=== PATIENT | female | born 1930 | race Hispanic/Latino ===

== ENCOUNTER 2016-11-04 04:54 | Observation (INO) | payer MEDICARE, BC ==
[2016-11-04 05:19] VITALS: BMI 21.2
--- NOTE | 2016-11-04 05:36 | ED PDOC ---
Arrival/HPI - General Time Seen by Provider: 11/04/16 05:13 Historian: Patient - History of Present Illness Narrative History of Present Illness (Text): 11/04/16 05:35 Audrey Crooks is an 86 year old female, whose past medical history includes IDDM, chronic kidney disease, hypertension, hyperlipidemia, PAD, and vertigo, who presents to the Emergency department complaining of left-sided chest pain radiating down to left upper arm. Patient states she woke up with pain 2 hours prior to arrival. Patient states pain began to gradually worsen and but resolved on when she arrived to the Emergency department. Patient denies any fever, chills, chest pain, shortness of breath, nausea, vomiting, diarrhea, urinary symptoms, back pain, neck pain, headache, dizziness, or any other complaints. PMD: Dr. Montana Glass Melt Operator: Dr. Townsend Time/Duration: 1-3 hours Symptom Onset: Gradual Activities at Onset: Rest, Light Context: Home Past Medical History - Provider Review Nursing Documentation Reviewed: Yes - Infectious Disease Hx of Infectious Diseases: None - Tetanus Immunization Tetanus Immunization: Unknown - Cardiac Hx Cardiac Disorders: Yes Hx Hypertension: Yes - Pulmonary Hx Respiratory Disorders: Yes Hx Pneumonia: Yes - Neurological Hx Neurological Disorder: Yes Hx Dizziness: Yes (VERTIGO) - HEENT Hx HEENT Disorder: Yes (WEARS RX GLASSES FOR READING) Hx Cataracts: Yes (HAD SURGERY BILATERAL EYES) Hx Deafness: Yes - Renal Hx Renal Disorder: Yes - Endocrine/Metabolic Hx Endocrine Disorders: Yes Hx Diabetes Mellitus Type 1: Yes - Hematological/Oncological Hx Blood Disorders: No - Integumentary Hx Dermatological Disorder: No - Musculoskeletal/Rheumatological Hx Musculoskeletal Disorders: Yes Hx Falls: Yes Hx Fractures: Yes (ANKLE FX) - Gastrointestinal Hx Gastrointestinal Disorders: Yes (COLON SURGERY,APPENDECTOMY,POLYPS, CONSTIPATION) Hx Gastroesophageal Reflux: No (pt denies) Other/Comment: CONSTIPATION, pt stated "I was told by dr Lou 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" Pt denies colon sx or colon cancer, gstritis - Genitourinary/Gynecological Hx Genitourinary Disorders: Yes (OVERACTIVE BLADDER) Other/Comment: HYSTERECTOMY - Psychiatric Hx Depression: No Hx Emotional Abuse: No Hx Physical Abuse: No Hx Substance Use: No - Surgical History Hx Appendectomy: Yes Hx Hysterectomy: Yes Other/Comment: POLYPS REMOVED,BILATERAL CATARACT SURGERY,COLON SURGERY - Anesthesia Hx Anesthesia: Yes Hx Anesthesia Reactions: No Hx Malignant Hyperthermia: No - Suicidal Assessment Feels Threatened In Home Enviroment: No Family/Social History - Physician Review Nursing Documentation Reviewed: Yes Family/Social History: No Known Family HX Smoking Status: Never Smoked Hx Alcohol Use: No Hx Substance Use: No Hx Substance Use Treatment: No Allergies/Home Meds Allergies/Adverse Reactions: Allergies No Known Allergies Allergy (Verified 09/26/15 13:09) Home Medications: Home Meds Medication Instructions Recorded Confirmed Lisinopril 20 mg PO DAILY 11/07/12 11/04/16 Aspirin [Lo-Dose Aspirin EC] 81 mg PO DAILY 07/13/16 11/04/16 Cilostazol [Pletal] 100 mg PO BID 07/13/16 11/04/16 Insulin Human Isophane (NPH) 15 unit SC AMHS 07/13/16 11/04/16 [Novolin N] Insulin Human Isophane (NPH) 20 unit SC HS 07/13/16 11/04/16 [Novolin N] Insulin Human Regular-LOW [HumuLIN 8 units SC ACHS 07/13/16 11/04/16 R LOW] Atenolol [Tenormin] 50 mg PO DAILY 11/04/16 11/04/16 Atenolol [Tenormin] 50 mg PO DAILY 11/04/16 11/04/16 Clopidogrel [Plavix] 75 mg PO DAILY 11/04/16 11/04/16 Rosuvastatin Calcium [Crestor] 20 mg PO DAILY 11/04/16 11/04/16 Review of Systems - Physician Review All systems were reviewed & negative as marked: Yes - Review of Systems Constitutional: Normal. absent: Fevers Eyes: Normal ENT: Normal Respiratory: Normal. absent: SOB, Cough Cardiovascular: Normal. absent: Chest Pain Gastrointestinal: Normal. absent: Abdominal Pain, Diarrhea, Nausea, Vomiting Genitourinary Female: Normal. absent: Dysuria, Frequency, Hematuria, Urine Output Changes Musculoskeletal: Other (+left upper arm pain ). absent: Back Pain, Neck Pain Skin: Normal Neurological: Normal Endocrine: Normal Hemo/Lymphatic: Normal Psychiatric: Normal Physical Exam Vital Signs Reviewed: Yes Vital Signs Temp Pulse Resp BP Pulse Ox 11/04/16 14:21 67 18 139/66 96 11/04/16 13:00 105 H 18 158/85 H 96 11/04/16 12:00 98.7 F 64 18 118/76 11/04/16 10:55 78 16 131/60 96 11/04/16 07:13 98.7 F 64 16 118/76 97 11/04/16 05:00 97.7 F 75 16 161/88 H 99 Temperature: Afebrile Blood Pressure: Hypertensive Pulse: Regular Respiratory Rate: Normal Appearance: Positive for: Well-Appearing, Non-Toxic, Comfortable Pain Distress: None Mental Status: Positive for: Alert and Oriented X 3 - Systems Exam Head: Present: Atraumatic, Normocephalic Pupils: Present: PERRL Extroacular Muscles: Present: EOMI Conjunctiva: Present: Normal Mouth: Present: Moist Mucous Membranes Neck: Present: Normal Range of Motion Respiratory/Chest: Present: Clear to Auscultation, Good Air Exchange. No: Respiratory Distress, Accessory Muscle Use Cardiovascular: Present: Regular Rate and Rhythm, Normal S1, S2. No: Murmurs Abdomen: Present: Normal Bowel Sounds. No: Tenderness, Distention, Peritoneal Signs Back: Present: Normal Inspection Upper Extremity: Present: Normal Inspection. No: Cyanosis, Edema Lower Extremity: Present: Normal Inspection. No: Edema Neurological: Present: GCS=15, CN II-XII Intact, Speech Normal Skin: Present: Warm, Dry, Normal Color. No: Rashes Psychiatric: Present: Alert, Oriented x 3, Normal Insight, Normal Concentration Medical Decision Making ED Course and Treatment: 11/04/16 05:35 Impression: 86 year old female complaining of left upper arm pain for 2 hours [employer]. Differential Diagnosis include but are not limited to: ACS vs. chest pain Plan: -- EKG -- Chest X-ray -- Labs, cardiac enzymes -- Urinalysis -- Reassess and disposition Prior Visits: Notes and results from previous visits were reviewed. Progress Notes: Reviewed EKG, NSR at [address]-segment elevations or depressions, no T-wave inversions, normal intervals. 11/04/16 06:[address] Yang, who is aware and agrees with plan. Accepts pt in to his service. - Lab Interpretations Lab Results: 11/04/16 05:30 11/04/16 05:30 Lab Results 11/04/16 05:30: Sodium 136, Potassium 4.0, Chloride 100, Carbon Dioxide 27, Anion Gap 13, BUN 30 H, Creatinine 1.3, Est GFR ( Amer) 47, Est GFR (Non- Af Amer) 39, Random Glucose 208 H, Calcium 9.6, Magnesium 2.3 H, Total Bilirubin 1.1, AST 23, ALT 28, Alkaline Phosphatase 71, Lactate Dehydrogenase 373, Total Creatine Kinase 72, Troponin I < 0.01, Total Protein 6.7, Albumin 3.8 , Globulin 2.9, Albumin/Globulin Ratio 1.3 11/04/16 05:30: WBC 3.6 L D, RBC 3.98, Hgb 11.1 L, Hct 32.8 L, MCV 82.4, MCH 27.9, MCHC 33.8, RDW 13.1, Plt Count 205, MPV 10.0, Gran % 60.8, Lymph % (Auto) 25.5, Ralls % (Auto) 9.0 H, Eos % (Auto) 3.9, Baso % (Auto) 0.8, Gran # 2.17, Lymph # 0.9 L, Ralls # 0.3, Eos # 0.1, Baso # 0.03 - RAD Interpretation Radiology Orders: 11/04/16 06:25 CHEST PORTABLE [RAD] Stat - EKG Interpretation Interpreted by ED Physician: Yes Type: 12 lead EKG - Medication Orders Current Medication Orders: Acetaminophen (Tylenol 325mg Tab) 650 mg PO Q4H PRN PRN Reason: Pain, Mild (1-3) Aspirin (Ecotrin) 81 mg PO DAILY [facility] Last Admin: 11/04/16 12:21 Dose: 81 mg Atenolol (Tenormin) 50 mg PO DAILY [facility] Last Admin: 11/04/16 12:21 Dose: 50 mg Atorvastatin Calcium (Lipitor) 80 mg PO DIN [facility] Cilostazol (Pletal) 100 mg PO BID [facility] Last Admin: 11/04/16 12:28 Dose: 100 mg Clopidogrel Bisulfate (Plavix) 75 mg PO DAILY [facility] Last Admin: 11/04/16 12:21 Dose: 75 mg Insulin Human NPH (Humulin N) 15 units SC ACBD [facility] Last Admin: 11/04/16 12:22 Dose: 15 units Insulin Human Regular (Humulin R High) 0 units SC ACHS [facility] PRN Reason: Protocol Last Admin: 11/04/16 12:16 Dose: 10 units Lisinopril (Zestril) 20 mg PO DAILY [facility] Last Admin: 11/04/16 12:21 Dose: 20 mg Discontinued Medications Insulin Human Regular (Humulin R) Confirm Administered Dose 10 units .ROUTE .STK -MED ONE Stop: 11/04/16 12:21 Last Admin: 11/04/16 12:16 Dose: - Scribe Statement The provider has reviewed the documentation as recorded by the Malikibchevy Michelle All medical record entries made by the Malikibchevy were at my direction and personally dictated by me. I have reviewed the chart and agree that the record accurately reflects my personal performance of the history, physical exam, medical decision making, and the department course for this patient. I have also personally directed, reviewed, and agree with the discharge instructions and disposition. Disposition/Present on Arrival - Present on Arrival Any Indicators Present on Arrival: No History of DVT/PE: No History of Uncontrolled Diabetes: No Urinary Catheter: No History Surgical Site Infection Following: None - Disposition Have Diagnosis and Disposition been Completed?: Yes Diagnosis: Chest pain Disposition: HOSPITALIZED Disposition Time: 06:00 Condition: GOOD
[2016-11-04 05:46] LABS: ADD MANUAL DIFF? NO
[2016-11-04 05:59] LABS: ALB/GLOB RATIO 1.3 (1.1-1.8); ALKALINE PHOSPHATASE 71 U/L (38-133); ALT/SGPT 28 U/L (7-56); AST/SGOT 23 U/L (15-39); BILIRUBIN,TOTAL 1.1 mg/dL (0.2-1.3); BLOOD UREA NITROGEN 30 mg/dL (7-21); CALCIUM 9.6 mg/dL (8.4-10.5); CARBON DIOXIDE 27 mmol/L (21-33); CHLORIDE 100 mmol/L (98-107); GFR AFRICAN-AMERICAN 47; GLUCOSE,RANDOM 208 mg/dL (70-110); MAGNESIUM 2.3 mg/dL (1.7-2.2); SODIUM 136 mmol/L (132-148); TOTAL PROTEIN 6.7 g/dL (5.8-8.3)
[2016-11-04 06:11] LABS: TROPONIN I < 0.01 ng/mL
[2016-11-04 06:16] LABS: BASO # 0.03 K/mm3 (0.0-2.0); BASO % 0.8 % (0.0-3.0); EOS # 0.1 (0.0-0.7); EOS % 3.9 % (1.5-5.0); GRAN # 2.17 (1.4-6.5); GRAN % 60.8 % (50.0-68.0); HEMATOCRIT 32.8 % (36.0-48.0); LYMPH # 0.9 (1.2-3.4); LYMPH % 25.5 % (22.0-35.0); MEAN CELL VOLUME 82.4 fL (80.0-105.0); MEAN CORPUSCULAR HEMOGLOBIN 27.9 pg (25.0-35.0); MEAN CORPUSCULAR HGB CONC 33.8 g/dl (31.0-37.0); MONO # 0.3 (0.1-0.6); PLATELET COUNT 205 10^3/uL (120.0-450.0); RED CELL DISTRIBUTION WIDTH 13.1 % (11.5-14.5); WHITE BLOOD COUNT 3.6 10^3/ul (4.5-11.0)
[2016-11-04 08:02] LABS: URINE BILIRUBIN NEGATIVE (NEGATIVE); URINE BLOOD SMALL (NEGATIVE); URINE GLUCOSE (UA) 250 mg/dL (NEGATIVE); URINE KETONE NEGATIVE (NEGATIVE); URINE LEUKOCYTE ESTERASE NEGATIVE Leu/uL (NEGATIVE); URINE PROTEIN TRACE mg/dL (<30 mg/dL); URINE UROBILINOGEN 0.2 E.U./dL (<1 E.U./dL)
[2016-11-04 08:04] LABS: URINE COLOR LIGHT YELLOW (YELLOW)
[2016-11-04 08:13] LABS: URINE APPEARANCE SL CLOUDY (CLEAR); URINE BACTERIA MANY (NEG)
[2016-11-04 08:14] LABS: URINE EPITHELIAL CELLS 0 - 2 /hpf (0-5); URINE RBC NEGATIVE /hpf (0-2); URINE WBC 0 - 2 /hpf (0-6)
[2016-11-04] MEDS: Insulin Reg-HIGH-Coverage SC SCH ×3 (12:16→22:05)
[2016-11-04] MEDS ORDERED: Insulin Regular 1 UNITS/0.01 ML ML ONE (12:20)
[2016-11-04] MEDS: Insulin Human NPH 1 UNITS/0.01 ML SC SCH ×2 (12:22→17:11)
[2016-11-04] MEDS: Cilostazol 100 mg Tab UD PO SCH ×2 (12:28→17:18)
--- NOTE | 2016-11-04 15:08 | RAD ---
HISTORY: CP COMPARISON: Comparison chest 07/13/2016. FINDINGS: LUNGS: No active pulmonary disease. PLEURA: No significant pleural effusion identified, no pneumothorax apparent. CARDIOVASCULAR: Heart size normal. Calcification of the aortic knob OSSEOUS STRUCTURES: No significant abnormalities. VISUALIZED UPPER ABDOMEN: There appears to be metallic clips in the right upper quadrant of the abdomen consistent prior cholecystectomy. OTHER FINDINGS: None. IMPRESSION: No acute infiltrates.
--- NOTE | 2016-11-04 20:13 | HP ---
CHIEF COMPLAINT AND HISTORY OF PRESENT ILLNESS: This is an 86-year-old female who is coming into the hospital with complaints of chest pain. She said the chest pain was left-sided and it was going lindsey n to the left arm. It woke her up from sleep, so she was concerned. She has a history of diabetes, hypertension, dyslipidemia. The patient has seen Dr. Townsend in the past and had a stress test, but t his was many years ago. She has no complaints of any fevers, no diaphoresis, no nausea, no vomiting. She said the pain was about a 5/10, radiating to the left arm. Nothing was making the pain better. REVIEW OF SYSTEMS: All other review of symptoms are within normal limits except as mentioned. ALLERGIES: No known drug allergies. HOME MEDICATIONS: Lisinopril, aspirin, Pletal, NPH 15 units in the morning and the evening, atenolol , Plavix. SOCIAL HISTORY: She never smoked. She denies alcohol or drug abuse. PAST MEDICAL HISTORY: 1. 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 2. Dyslipidemia. 3. Hypertension. 4. Vertigo. PAST SURGICAL HISTORY: Cardiac cath. Bilateral eye surgery for cataracts. FAMILY HISTORY: Father at 80 of throat cancer. Mother at 66 of diabetes. PHYSICAL EXAMINATION: VITAL SIGNS: Temperature is 98.7, pulse of 67, blood pressure is 139/66, respirations 18, O2 saturat ion 96%. Height is 5 feet 2 inches, weight 116 pounds, BMI is 21.2. GENERAL: Patient lying in bed, flat, and in no apparent distress. HEAD AND NECK EXAM: Atraumatic, normocephalic. Conjunctivae are pink. Throat clear and mouth with moist mucosa. Oropharynx benign. EYES: Extraocular movements are intact. PERRLA. NECK: Supple. No JVD, thyromegaly, or adenopathy. No bruits. HEART: S1 and S2 regular rate and rhythm. No murmurs, rubs, or gallops. LUNGS: Clear to auscultation bilaterally. No wheezing rales or rhonchi appreciated. No retraction s on exam. ABDOMEN: Soft, nontender, nondistended. Bowel sounds are positive in all quadrants. No rebound. No hepatosplenomegaly. EXTREMITIES: No cyanosis, clubbing, or edema. NEURO: No facial asymmetry, tongue is midline, no uvula deviation. Power is 5/5 in upper extremity and 5/5 in lower extremity. Sensation is normal in upper extremity and lower extremity. PSYCH: Awake, alert, oriented x3. No anxiety or depression symptoms. Good insight. Normal affec t. : No CVA tenderness VASCULAR: 2+ pulses in carotid and pedal pulses. SKIN: No erythema or abnormal nodules noted. SPINE: Normal curvature. LYMPHADENOPATHY: No anterior cervical or posterior cervical adenopathy. No inguinal adenopathy. LABORATORY DATA: Have been reviewed. White count of 3.6, hemoglobin 11.1. The patient's first and second troponin is 0.01. Magnesium is 2.3. The patient's glucose is . Urine: Ketones are neg ative in urine, blood is small. Chest x-ray done shows no acute infiltrates. EKG shows sinus rhythm at 63. No ST-T changes. ASSESSMENT: 1. Chest pain. 2. Dyslipidemia. 3. Diabetes type 2. 4. Hypertension. PLAN: The patient is going to be admitted to the hospital. She is going to be on aspirin. She is o n atenolol. This will be continued for her chest pain. She is on Lipitor for dyslipidemia. She is also on Plavix. She is on lisinopril for her hypertension. I did speak to the patient's family at t he bedside. She is going to be on a diabetic diet. She will most likely need a stress test. I will get Dr. Townsend to evaluate further. Dileep Yang MD cc: [id number] TT: 11/04/2016 20:12:44 mn
[2016-11-04] MEDS ORDERED: Insulin Human NPH 1 UNITS/0.01 ML SC SCH (22:00)
--- NOTE | 2016-11-04 22:08 | CARD ---
APPROVED REPORT EKG Measurement Heart [id number] <Conclusion> Normal sinus rhythm Normal ECG
[2016-11-05 07:05] VITALS: RESP 20; O2SAT 94
[2016-11-05] MEDS: Insulin Human NPH 1 UNITS/0.01 ML SC SCH (07:47)
[2016-11-05] MEDS: Insulin Reg-HIGH-Coverage SC SCH ×2 (07:48→11:29)
--- NOTE | 2016-11-05 09:30 | DS ---
This is an 86-year-old female who had come into the hospital because of chest pain. She says she no longer has any chest pain. She had troponins done x 3, which were negative. She is going to be seen by Dr. Townsend this morning. She may need outpatient stress test done. I will defer this to Dr. Karen ford. She has no complaints of any headaches or dizziness. PHYSICAL EXAMINATION: VITAL SIGNS: Temperature is 97.9, pulse is 70, blood pressure 148/65, respirations 18, O2 saturation 99. GENERAL: The patient comfortable, in no acute distress. HEENT: Anicteric sclerae. Moist mucosa. NECK: No JVD or adenopathy. CARDIAC: S1/S2. No murmurs. No rubs. Regular. RESPIRATORY: Clear to auscultation bilaterally. No wheezes, rales, or rhonchi. Good air entry. ABDOMEN: Bowel sounds are positive, soft, nontender, and nondistended. EXTREMITIES: No edema. Has 1+ pulses. ASSESSMENT: 1. Chest pain. 2. Dyslipidemia. 3. Diabetes type 2. 4. Hypertension. PLAN: The patient is on aspirin and Plavix. This will be continued. She is on Lipitor for dyslipid emia. She is going to be on her atenolol. She is on lisinopril for hypertension. She is comfortabl e. CONDITION: Stable. ACTIVITIES: Increase as tolerated. Follow up with primary care doctor in 1 week. Dileep Yang MD cc: [id number] TT: 11/05/2016 09:29:43 cn
[2016-11-05] MEDS: Cilostazol 100 mg Tab UD PO SCH (10:21)
--- NOTE | 2016-11-05 10:46 | CON ---
DATE: 11/05/2016 INDICATIONS: Chest pain. This is an 86-year-old woman admitted yesterday through the Emergency Room with a left-sided chest pain radiating into the left arm. This morning, she does not recall having chest pain. Her memory seems to be significantly limited. The chart states that the chest pain radiated into the arm and lasted for several hours. This morning, she denies chest pain or other cardiac symptoms. She feels well. Her memory is poor. There is no orthopnea, PND, syncope, presyncope, dizziness, vertigo, edema, claudication, fever, chills, cough, sputum production, hemoptysis, abdominal pain, nausea, vomiting, diarrhea, constipation, or melena. PAST MEDICAL HISTORY: Notable for diabetes, hypertension, hyperlipidemia, chronic kidney disease, peripheral arterial disease and dementia. There is no history of rheumatic fever, myocardial infarction, congestive heart failure, stroke, TIA or gout. Apparently, there is a history of a stress test in the remote past, but nothing recently. MEDICATIONS: At the time of admission include Crestor, insulin, lisinopril, aspirin, Plavix, Pletal, Tenormin. ALLERGIES: There are no known medication allergies. She lives at home. She does not smoke cigarettes. She does not drink alcohol. FAMILY HISTORY: Noncontributory. REVIEW OF SYSTEMS: A 10-point is otherwise unremarkable except as noted above. PHYSICAL EXAMINATION: GENERAL: She is a well-developed, elderly woman, sitting on her bed, in telemetry, in no acute distress. VITAL SIGNS: Unremarkable. She is in sinus rhythm at 70 beats per minute. She is afebrile. Blood pressure 110/58, saturation 94%-99% on room air. HEENT: Reveals no neck vein distention, thyromegaly, or carotid bruits. Mucous membranes moist. Conjunctivae pink. NECK: Supple. LUNG MI: Clear. HEART: Revealed normal first and second heart sounds without murmur, gallop, rub or click. ABDOMEN: Soft. Bowel sounds are present. There is no mass, organomegaly, tenderness, rebound or guarding. There is no CVA tenderness. There is no palpable abdominal aortic aneurysm. EXTREMITIES: Revealed no cyanosis, clubbing, or edema. NEUROLOGIC: She was awake, alert and oriented. SKIN: Warm and dry. No rash or cellulitis. PSYCHIATRIC: Normal as to mood and affect, but poor memory. LABORATORY AND IMAGING: A chest x-ray reveals no acute infiltrates. EKG demonstrates regular sinus rhythm with leftward axis and nonspecific ST wave changes, no change from the prior EKG. CBC is notable for white count of 3600, hemoglobin 11,100, hematocrit 32,800, platelet count normal. Electrolytes, BUN , creatinine, blood sugar notable for an elevated blood sugar at 208. Magnesium is 2.3. LFTs are unremarkable. Three troponins are negative. CK is 72. IMPRESSION: The patient is an 86-year-old woman who apparently complained of chest pain radiating into the left arm, but has negative troponins and a benign EKG. This morning, she does not recall the symptoms, probably due to significant dementia. I agree with current plans. We will continue her usual medications. Early discharge is planned with outpatient followup with Dr. Montana. I would continue aspirin, Lipitor, Plavix and Tenormin. I would continue lisinopril. She is getting Pletal and insulin. Outpatient stress testing will be arranged pending discussion with Dr. Montana. Overall, a conservative course of cardiac care is anticipated given her apparently advanced dementia. Ayan Townsend MD cc: [id number] TT: 11/05/2016 10:45:53 Confirmation # [id number] Dictation # [id number] MTDD
[2016-11-05 11:58] VITALS: BP 134/62; PULSE 66; TEMP 97.5
== END 2016-11-05 16:36 | disposition home or self-care (01) ==
LOC: ED 04:54 → ERH 06:38 → 2RNO 14:59
PROVIDERS: ADMIT Internal Medicine Nephrology; ATTEND Internal Medicine Nephrology
DX: R07.89 Other chest pain (principal); I12.9 Hypertensive chronic kidney disease with stage 1 through stage 4 chronic kidney disease, or unspecified chronic kidney disease; N18.9 Chronic kidney disease, unspecified; E78.5 Hyperlipidemia, unspecified; E11.22 Type 2 diabetes mellitus with diabetic chronic kidney disease; I73.9 Peripheral vascular disease, unspecified; R42 Dizziness and giddiness; Z79.4 Long term (current) use of insulin; F03.90 Unspecified dementia, unspecified severity, without behavioral disturbance, psychotic disturbance, mood disturbance, and anxiety; Z79.02 Long term (current) use of antithrombotics/antiplatelets; Z79.82 Long term (current) use of aspirin; Z90.710 Acquired absence of both cervix and uterus; Z90.49 Acquired absence of other specified parts of digestive tract; Z98.42 Cataract extraction status, left eye; Z98.41 Cataract extraction status, right eye; Z80.8 Family history of malignant neoplasm of other organs or systems; Z83.3 Family history of diabetes mellitus
CPT/HCPCS: 71010; 80053; 81001; 82550; 82948; 83615; 83735; 84484; 85025; 93005; 96372; 99285; G0378

== ENCOUNTER 2017-06-02 10:21 | Observation (INO) | payer MEDICARE, BC ==
[2017-06-02 11:43] LABS: CALCIUM 10.4 mg/dL (8.4-10.5)
[2017-06-02 11:45] LABS: ALB/GLOB RATIO 1.3 (1.1-1.8); POTASSIUM 4.7 mmol/L (3.6-5.0); TOTAL PROTEIN 8.5 g/dL (5.8-8.3)
[2017-06-02] MEDS ORDERED: Sodium Chloride 0.9% 1,000 ML IV STA (11:48)
[2017-06-02 11:50] LABS: BASO # 0.02 K/mm3 (0.0-2.0); BASO % 0.2 % (0.0-3.0); EOS # 0.1 (0.0-0.7); EOS % 0.9 % (1.5-5.0); GRAN # 9.89 (1.4-6.5); HEMATOCRIT 40.9 % (36.0-48.0); LYMPH # 1.2 (1.2-3.4); MEAN CELL VOLUME 84.7 fl (80.0-105.0); MEAN CORPUSCULAR HEMOGLOBIN 28.6 pg (25.0-35.0); MEAN CORPUSCULAR HGB CONC 33.7 g/dl (31.0-37.0); MEAN PLATELET VOLUME 10.4 fl (7.0-11.0); MONO # 0.6 (0.1-0.6); MONO % 4.9 % (1.0-6.0); RED CELL DISTRIBUTION WIDTH 12.8 % (11.5-14.5); WHITE BLOOD COUNT 11.8 10^3/ul (4.5-11.0)
[2017-06-02 11:55] LABS: INR 1.18 (0.93-1.08); PARTIAL THROMBOPLASTIN TIME 24.3 Seconds (25.1-36.5)
--- NOTE | 2017-06-02 11:56 | ED PDOC ---
Arrival/HPI - General Chief Complaint: Abdominal Pain Time Seen by Provider: 06/02/17 10:26 Historian: Patient, Family - History of Present Illness Narrative History of Present Illness (Text): 06/02/17 12:03 An 87 year old female, whose past medical history includes chronic kidney disease, hypertension, hyperlipidemia, PAD, vertigo and IDDM, was brought in by EMS to the emergency department complaining of sore throat and runny nose for the past two days. HPI provided by patient's cousin. Cousin reports that since this morning patient has abdominal pain, back pain, lower extremity pain, which is chronic and similar to symptoms in the past. Also reports more frequent bowel movements, diaphoresis and lightheadedness. Cousin reports patient has an appointment with PMD for tomorrow. Patient denies any fever, shortness of breath or any other complaints at this time. PMD: Dr. Cheryl [place] Time/Duration: Other (2 days) Symptom Onset: Sudden Symptom Course: Unchanged Activities at Onset: Rest Context: Home Past Medical History - Provider Review Nursing Documentation Reviewed: Yes - Infectious Disease Hx of Infectious Diseases: None - Tetanus Immunization Tetanus Immunization: Unknown - Reproductive Menopause: Yes - Cardiac Hx Cardiac Disorders: Yes Hx Hypertension: Yes - Pulmonary Hx Respiratory Disorders: Yes Hx Pneumonia: Yes - Neurological Hx Neurological Disorder: Yes Hx Dizziness: Yes (VERTIGO) - HEENT Hx HEENT Disorder: Yes (WEARS RX GLASSES FOR READING) Hx Cataracts: Yes (HAD SURGERY BILATERAL EYES) Hx Deafness: Yes - Renal Hx Renal Disorder: Yes - Endocrine/Metabolic Hx Endocrine Disorders: Yes Hx Diabetes Mellitus Type 1: Yes - Hematological/Oncological Hx Blood Disorders: No - Integumentary Hx Dermatological Disorder: No - Musculoskeletal/Rheumatological Hx Musculoskeletal Disorders: Yes Hx Falls: Yes Hx Fractures: Yes (ANKLE FX) - Gastrointestinal Hx Gastrointestinal Disorders: Yes (COLON SURGERY,APPENDECTOMY,POLYPS, CONSTIPATION) Hx Gastroesophageal Reflux: No (pt denies) Other/Comment: CONSTIPATION, pt stated "I was told by dr Lou 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" Pt denies colon sx or colon cancer, gstritis - Genitourinary/Gynecological Hx Genitourinary Disorders: Yes (OVERACTIVE BLADDER) Other/Comment: HYSTERECTOMY - Psychiatric Hx Depression: No Hx Emotional Abuse: No Hx Physical Abuse: No Hx Substance Use: No - Surgical History Hx Appendectomy: Yes Hx Hysterectomy: Yes Other/Comment: POLYPS REMOVED,BILATERAL CATARACT SURGERY,COLON SURGERY - Anesthesia Hx Anesthesia: Yes Hx Anesthesia Reactions: No Hx Malignant Hyperthermia: No - Suicidal Assessment Feels Threatened In Home Enviroment: No Family/Social History - Physician Review Nursing Documentation Reviewed: Yes Family/Social History: No Known Family HX Smoking Status: Never Smoked Hx Alcohol Use: No Hx Substance Use: No Hx Substance Use Treatment: No Allergies/Home Meds Allergies/Adverse Reactions: Allergies No Known Allergies Allergy (Verified 06/02/17 10:27) Home Medications: Home Meds Medication Instructions Recorded Confirmed Lisinopril 20 mg PO DAILY 11/07/12 06/02/17 Aspirin [Lo-Dose Aspirin EC] 325 mg PO DAILY 07/13/16 06/02/17 Cilostazol [Pletal] 100 mg PO BID 07/13/16 06/02/17 Insulin Human Isophane (NPH) 15 unit SC QAM 07/13/16 06/02/17 [Novolin N] Insulin Human Isophane (NPH) 18 unit SC HS 07/13/16 06/02/17 [Novolin N] Insulin Human Regular-LOW [HumuLIN 8 units SC ACHS 07/13/16 06/02/17 R LOW] Atenolol [Tenormin] 50 mg PO DAILY 11/04/16 06/02/17 Clopidogrel [Plavix] 75 mg PO DAILY 11/04/16 06/02/17 Rosuvastatin Calcium [Crestor] 20 mg PO DAILY 11/04/16 06/02/17 Cholecalciferol (Vitamin D3) 1,000 unit PO DAILY 06/02/17 06/02/17 [Vitamin D3] Review of Systems - Physician Review All systems were reviewed & negative as marked: Yes - Review of Systems Constitutional: absent: Fevers Respiratory: absent: SOB Physical Exam - Physical Exam Narrative Physical Exam (Text): 06/02/17 12:01 Constitutional: No acute distress. Head: Normocephalic. Atraumatic. Eyes: PERRL. ENT: Moist mucous membranes. no erythema, no exudates. Neck: Supple. Cardiovascular: Regular rate. Chest: No tenderness. Respiratory: Clear to auscultation bilaterally. GI: Soft. Nontender. Nondistended. Back: No CVA tenderness. Musculoskeletal: No tenderness of extremities. right lower leg larger than left. Skin: No rash. Neurologic: Alert, no focal deficit. Vital Signs Reviewed: Yes Vital Signs Temp Pulse Resp BP Pulse Ox 06/02/17 14:00 99 F 80 19 123/51 L 100 06/02/17 12:22 98.1 F 70 19 149/55 L 100 06/02/17 10:22 98 F 66 18 155/56 H 100 Temperature: Afebrile Blood Pressure: Hypertensive Pulse: Regular Respiratory Rate: Normal Appearance: Positive for: Well-Appearing, Non-Toxic, Comfortable Pain Distress: None Mental Status: Positive for: Alert and Oriented X 3 Medical Decision Making ED Course and Treatment: 06/02/17 11:56 Impression: An 87 year old female with cold-like symptoms, abdominal pain, back pain, lower extremity pain, diaphoresis, more frequent bowel movements and lightheadedness. Differential Diagnosis included but are not limited to: URI vs. pneumonia vs. dehydration vs. gastroenteritis vs. DVT Plan: -- EKG -- chest xray -- Ultrasound lower extremity -- labs -- IV fluids, Zofran -- Reassess and disposition Prior Visits: Notes and results from previous visits were reviewed. Patient was last seen in the emergency department on 11/04/16 for evaluation of left sided chest pain radiating to left upper arm. Progress Notes: EKG: Ordered, reviewed, and independently interpreted the EKG. Rate : 60 BPM Rhythm : NSR Interpretation : No ST elevations 06/02/17 12:26 chest xray: Creator : Jordan Estrada MD FINDINGS: LUNGS: No active pulmonary disease. PLEURA: No significant pleural effusion identified, no pneumothorax apparent. CARDIOVASCULAR: Normal. OSSEOUS STRUCTURES: No significant abnormalities. VISUALIZED UPPER ABDOMEN: Normal. IMPRESSION: No active disease. 06/02/17 14:10 Right lower extremity venous US Creator : Tomi Collier MD FINDINGS: The visualized deep venous system of the right lower extremity is sonographically normal and compressible. Normal waveforms and augmentation are seen. There is no sonographic evidence for deep venous thrombosis in the visualized segments of the right lower extremity. IMPRESSION: 1. No sonographic evidence for deep venous thrombosis in the visualized segments of the right lower extremity. Dr. Mai covering for Dr. Montana accepts patient to her service for near syncope. - Lab Interpretations Lab Results: 06/02/17 10:50 06/02/17 10:50 Lab Results 06/02/17 10:51: POC Glucose (mg/dL) 159 H 06/02/17 10:50: Total Creatine Kinase 84, Troponin I < 0.01, Lipase 29 06/02/17 10:50: PT 13.0 H, INR 1.18 H, APTT 24.3 L 06/02/17 10:50: Sodium 136, Potassium 4.7, Chloride 99, Carbon Dioxide 27, Anion Gap 15, BUN 22 H, Creatinine 1.4 H, Est GFR ( Amer) 43, Est GFR ( Non-Af Amer) 36, Random Glucose 138 H, Calcium 10.4, Total Bilirubin 2.0 H, AST 47 H, ALT 31, Alkaline Phosphatase 93, Total Protein 8.5 H, Albumin 4.8, Globulin 3.7, Albumin/Globulin Ratio 1.3 06/02/17 10:50: WBC 11.8 H D, RBC 4.83, Hgb 13.8, Hct 40.9, MCV 84.7, MCH 28.6, MCHC 33.7, RDW 12.8, Plt Count 273, MPV 10.4, Gran % 84.0 H, Lymph % (Auto) 10.0 L, Wal[place] % (Auto) 4.9, Eos % (Auto) 0.9 L, Baso % (Auto) 0.2, Gran # 9.89 H , Lymph # 1.2, Waldo # 0.6, Eos # 0.1, Baso # 0.02 I have reviewed the lab results: Yes - RAD Interpretation Radiology Orders: 06/02/17 11:49 CHEST PORTABLE [RAD] Stat DUPLEX LOWER EXTRM VEIN RIGHT [US] Stat - EKG Interpretation Interpreted by ED Physician: Yes Type: 12 lead EKG - Medication Orders Current Medication Orders: Aspirin (Ecotrin) 325 mg PO DAILY [facility] Atenolol (Tenormin) 50 mg PO DAILY [facility] Atorvastatin Calcium (Lipitor) 20 mg PO DIN [facility] Cilostazol (Pletal) 100 mg PO BID [facility] Clopidogrel Bisulfate (Plavix) 75 mg PO DAILY [facility] Insulin Human NPH (Humulin N) 15 units SC DAILY [facility] Insulin Human NPH (Humulin N) 18 units SC HS [facility] Insulin Human Regular (Humulin R) 8 units SC ACHS [facility] Lisinopril (Zestril) 20 mg PO DAILY [facility] Discontinued Medications Sodium Chloride (Sodium Chloride 0.9%) 1,000 mls @ 999 mls/hr IV .Q1H1M STA Stop: 06/02/17 12:48 Last Admin: 06/02/17 11:56 Dose: 999 mls/hr eMAR Start Stop Document 06/02/17 11:56 [place] (Rec: 06/02/17 11:57 [place] [facility] [id number] Intravenous Solution Start Date 06/02/17 Start Time 11:56 Insulin Human Regular (Humulin R Low) 8 units SC ACHS [facility] PRN Reason: Protocol Ondansetron HCl (Zofran Inj) 4 mg IVP STAT STA Stop: 06/02/17 11:49 Last Admin: 06/02/17 11:55 Dose: 4 mg IVP Administration Document 06/02/17 11:55 JORDAN (Rec: 06/02/17 11:56 [place] [facility] [id number] Charges for Administration # of IVP Administrations 1 - Scribe Statement The provider has reviewed the documentation as recorded by the More Velez Provider Scribe Attestation: All medical record entries made by the Scribe were at my direction and personally dictated by me. I have reviewed the chart and agree that the record accurately reflects my personal performance of the history, physical exam, medical decision making, and the department course for this patient. I have also personally directed, reviewed, and agree with the discharge instructions and disposition. Disposition/Present on Arrival - Present on Arrival Any Indicators Present on Arrival: No History of DVT/PE: No History of Uncontrolled Diabetes: No Urinary Catheter: No History of Decub. Ulcer: No History Surgical Site Infection Following: None - Disposition Have Diagnosis and Disposition been Completed?: Yes Diagnosis: Near syncope Disposition: HOSPITALIZED Disposition Time: 14:45 Patient Plan: Observation, Telemetry Condition: FAIR
--- NOTE | 2017-06-02 12:23 | RAD ---
HISTORY: near syncope COMPARISON: 11/04/2016 FINDINGS: LUNGS: No active pulmonary disease. PLEURA: No significant pleural effusion identified, no pneumothorax apparent. CARDIOVASCULAR: Normal. OSSEOUS STRUCTURES: No significant abnormalities. VISUALIZED UPPER ABDOMEN: Normal. OTHER FINDINGS: None. IMPRESSION: No active disease.
[2017-06-02 12:25] LABS: LIPASE 29 U/L (23-300)
[2017-06-02 12:42] LABS: TROPONIN I < 0.01 ng/mL
--- NOTE | 2017-06-02 14:08 | US ---
PROCEDURE: Right lower extremity venous US HISTORY: Leg pain and swelling. Evaluate for DVT. PHYSICIAN(S): Tomi Marion M.D. TECHNIQUE: Duplex sonography and color-flow Doppler with graded compression were used to evaluate the deep venous system of the right lower extremity. FINDINGS: The visualized deep venous system of the right lower extremity is sonographically normal and compressible. Normal waveforms and augmentation are seen. There is no sonographic evidence for deep venous thrombosis in the visualized segments of the right lower extremity. IMPRESSION: 1. No sonographic evidence for deep venous thrombosis in the visualized segments of the right lower extremity.
[2017-06-02] MEDS ORDERED: Insulin Reg-LOW-Coverage SC SCH (16:30)
[2017-06-02] MEDS: Aspirin 325 mg EC Tablets PO SCH (17:14)
[2017-06-02] MEDS: Cilostazol 100 mg Tab UD PO SCH (17:20)
[2017-06-02 17:54] VITALS: BMI 19.2
[2017-06-02] MEDS ORDERED: Insulin Regular 1 UNITS/0.01 ML ML SC ONE (18:30)
[2017-06-02] MEDS ORDERED: Insulin Human NPH 1 UNITS/0.01 ML SC SCH (22:00)
[2017-06-02] MEDS ORDERED: Insulin Regular 1 UNITS/0.01 ML ML SC STA (23:07)
[2017-06-02] MEDS ORDERED: Insulin Human NPH 1 UNITS/0.01 ML SC STA (23:08)
[2017-06-02] MEDS: Insulin Regular 1 UNITS/0.01 ML ML SC SCH (23:13)
[2017-06-03 06:27] VITALS: TEMP 97.7
[2017-06-03 06:27] LABS: HEMATOCRIT 32.1 % (36.0-48.0); MEAN CELL VOLUME 83.8 fl (80.0-105.0); MEAN CORPUSCULAR HEMOGLOBIN 27.9 pg (25.0-35.0); MEAN CORPUSCULAR HGB CONC 33.3 g/dl (31.0-37.0); MEAN PLATELET VOLUME 9.8 fl (7.0-11.0); RED CELL DISTRIBUTION WIDTH 13.1 % (11.5-14.5); WHITE BLOOD COUNT 8.1 10^3/ul (4.5-11.0)
[2017-06-03 06:49] LABS: ALB/GLOB RATIO 1.3 (1.1-1.8); BILIRUBIN,TOTAL 1.3 mg/dL (0.2-1.3); POTASSIUM 4.3 mmol/L (3.6-5.0); TOTAL PROTEIN 5.7 g/dL (5.8-8.3)
[2017-06-03] MEDS: Insulin Regular 1 UNITS/0.01 ML ML SC SCH (08:13)
[2017-06-03] MEDS ORDERED: Insulin Regular 1 UNITS/0.01 ML ML SC STA (08:14)
[2017-06-03] MEDS ORDERED: Insulin Reg-MEDIUM-Coverage SC STA (08:14)
[2017-06-03] MEDS: Cilostazol 100 mg Tab UD PO SCH (09:35)
[2017-06-03] MEDS: Aspirin 325 mg EC Tablets PO SCH (09:35)
[2017-06-03 09:36] VITALS: BP 131/63; PULSE 61
--- NOTE | 2017-06-03 09:50 | CARD ---
APPROVED REPORT EKG Measurement Heart [id number] NH [id number] <Conclusion> Sinus bradycardia LAD Artifact present No change
--- NOTE | 2017-06-03 09:55 | HP ---
CHIEF COMPLAINT AND HISTORY OF PRESENT ILLNESS: This is an 87-year-old female who was coming into the hospital because of abdominal pain. She has a past medical history is hypertension, dyslipidemia, peripheral arterial disease, and diabetes type 2. She says that she was having complaints of sore throat and runny nose for the past few days. She has been having frequent bowel movements. The patient says she had become dizzy. She felt like she was going to pass out. The patient says she does feel better this morning. She has no complaints of any headaches or dizziness. No nausea. No vomiting. No weakness in the arms and at the legs. Her diarrhea has improved. She has no abdominal pain. PAST MEDICAL HISTORY: 1. Diabetes type 2 times more than 20 years. 2. Dyslipidemia. 3. Hypertension. 4. Vertigo. PAST SURGICAL HISTORY: Cardiac catheterization and bilateral eye surgery for cataract. ALLERGIES: NO KNOWN ALLERGIES. HOME MEDICATIONS: Lisinopril, aspirin, Pletal, NPH 15 units in the morning and NPH 18 units in the evening, atenolol, Plavix, Crestor, and vitamin D. FAMILY HISTORY: Father at 80 of throat cancer. Mother at 66 of diabetes. REVIEW OF SYSTEMS: All other review of symptoms are within normal limits except what was mentioned. PHYSICAL EXAMINATION: VITAL SIGNS: Temperature 97.7, pulse 63, blood pressure 100/40, respirations 19, and O2 saturation 96%. GENERAL: The patient lying in bed, uncomfortable, and in no acute distress. HEENT: Atraumatic and normocephalic. Anicteric sclerae. Moist mucosa. [place] conjunctivae. No oral lesions. NECK: No JVD, anterior and posterior adenopathy, thyromegaly, or bruits. CARDIOVASCULAR: S1 and S2 regular. No murmur, rubs, or gallop. LUNGS: Clear to auscultation bilaterally. No wheezes, rales, or rhonchi. ABDOMEN: Bowel sounds are positive. Soft, nontender and nondistended. No hepatosplenomegaly. No rebound and no guarding. EXTREMITIES: No cyanosis, clubbing, or edema. NEUROLOGIC: No facial asymmetry. Tongue is midline. No vulva deviation. Power is 5/5 upper extremity and lower extremity. Sensation intact in upper extremity and lower extremity. PSYCHIATRIC: She is awake, alert and oriented x3. No anxiety or depression. She has normal affect. GENITOURINARY: No CVA tenderness. VASCULAR: 2+ pulses in the carotid pulses and pedal pulses. SKIN: No erythema or nodules SPINE: Shows normal curvature. EXTREMITIES: No cyanosis and clubbing. No edema. LABORATORY DATA: White count of 11.8, repeat is 8.1, hemoglobin 13.8, repeat 10.7. INR is 1.1. Chemistry shows a sodium of 136, BUN is 22, creatinine is 1.4, AST is 47, and repeat is 20. Chest x-ray done shows no active disease. Lower extremity Doppler shows no DVT in the right leg. ASSESSMENT: 1. Gastroenteritis. 2. Dizziness. 3. Chronic kidney disease stage III. 4. Diabetes type 2. 5. Dyslipidemia. 6. Hypertension. PLAN: The patient is currently comfortable. She had an EKG that shows sinus bradycardia at 59, QTc was 415. The patient is on her insulin for her diabetes. She is on Lipitor for dyslipidemia. She is on Plavix. She was given IV fluids. She most likely had a gastroenteritis that has improved. We will discharge the patient home. She may return, if she has any worsening of her symptoms. CONDITION: Stable. ACTIVITIES: Increase as tolerated. Dileep Yang MD
[2017-06-03] MEDS ORDERED: Insulin Human NPH 1 UNITS/0.01 ML SC SCH (10:00)
[2017-06-03 10:31] VITALS: RESP 18; O2SAT 98
[2017-06-03] MEDS ORDERED: Insulin Reg-MEDIUM-Coverage SC SCH (11:30)
== END 2017-06-03 11:19 | disposition home or self-care (01) ==
LOC: ED 10:21 → ERH 14:58 → 3RSO 16:45
PROVIDERS: ADMIT Internal Medicine; ATTEND Internal Medicine Nephrology
DX: K52.9 Noninfective gastroenteritis and colitis, unspecified (principal); R42 Dizziness and giddiness; R55 Syncope and collapse; I12.9 Hypertensive chronic kidney disease with stage 1 through stage 4 chronic kidney disease, or unspecified chronic kidney disease; N18.3 Chronic kidney disease, stage 3 (moderate); E11.22 Type 2 diabetes mellitus with diabetic chronic kidney disease; E78.5 Hyperlipidemia, unspecified; E11.51 Type 2 diabetes mellitus with diabetic peripheral angiopathy without gangrene; N32.81 Overactive bladder; Z79.4 Long term (current) use of insulin; Z79.82 Long term (current) use of aspirin
CPT/HCPCS: 36415; 71010; 80053; 82550; 82948; 83690; 84484; 85025; 85027; 85610; 85730; 93005; 93971; 96374; 99285; G0378; J2405; J7040

== ENCOUNTER 2017-09-20 10:15 | Inpatient (IN) | payer MEDICARE, BC ==
--- NOTE | 2017-09-20 10:28 | ED PDOC ---
Arrival/HPI - General Chief Complaint: High Blood Sugar Time Seen by Provider: 09/20/17 10:23 Historian: Patient, Family (family/cousin) - History of Present Illness Narrative History of Present Illness (Text): 09/20/17 10:30 pt p/w + sudden onset of severe dizziness/not feeling well, severely diaphoretic this morning; pt spoke to her cousin who lived with her at her home and states she just doesnt feel good; pt did not pass out but felt like so; pt' s FS was checked and it was > 500; pt + nausea/vomiting, no fever, ? chills, no cp/sob/palpitations, no abd pain, no numbness/tingling, no urinary/bowel changes , mildly decr appetite, no fall/trauma/sick contact, no travel today; per family , pt has been noted to have intermittent dizziness/lightheadedness x few weeks; pt had a fall 1 week ago and sustained left arm fx (pt was treated at [facility] and received an arm cast); pt arrived to ED for further eval; pt's without other complaints. per family, no slurr speech noted, no facial changes noted, no behavior changes , noted pt lives with her cousin pt's POA is her niece pt is right hand dominate PCP: DR Montana/Katheryn Time/Duration: Prior to Arrival Symptom Onset: Sudden Symptom Course: Improving Activities at Onset: Rest Context: Home Past Medical History - Provider Review Nursing Documentation Reviewed: Yes - Travel History Have you recently traveled outside [place] w/in the past 3 mons?: No - Past History Past History: No Previous - Infectious Disease Hx of Infectious Diseases: None - Tetanus Immunization Tetanus Immunization: Unknown - Cardiac Hx Cardiac Disorders: Yes Hx Hypertension: Yes - Pulmonary Hx Respiratory Disorders: Yes Hx Pneumonia: Yes - Neurological Hx Neurological Disorder: Yes Hx Dizziness: Yes (VERTIGO) - HEENT Hx HEENT Disorder: Yes (WEARS RX GLASSES FOR READING) Hx Cataracts: Yes (HAD SURGERY BILATERAL EYES) Hx Deafness: Yes - Renal Hx Renal Disorder: Yes - Endocrine/Metabolic Hx Endocrine Disorders: Yes Hx Diabetes Mellitus Type 1: Yes - Hematological/Oncological Hx Blood Disorders: No - Integumentary Hx Dermatological Disorder: No - Musculoskeletal/Rheumatological Hx Falls: No - Gastrointestinal Hx Gastrointestinal Disorders: Yes (COLON SURGERY,APPENDECTOMY,POLYPS, CONSTIPATION) Hx Gastroesophageal Reflux: No (pt denies) Other/Comment: CONSTIPATION, pt stated "I was told by dr Lou 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" Pt denies colon sx or colon cancer, gstritis - Genitourinary/Gynecological Hx Genitourinary Disorders: Yes (OVERACTIVE BLADDER) Other/Comment: HYSTERECTOMY - Psychiatric Hx Depression: No Hx Emotional Abuse: No Hx Physical Abuse: No Hx Substance Use: No - Surgical History Hx Appendectomy: Yes Hx Hysterectomy: Yes Other/Comment: POLYPS REMOVED,BILATERAL CATARACT SURGERY,COLON SURGERY - Anesthesia Hx Anesthesia: Yes Hx Anesthesia Reactions: No Hx Malignant Hyperthermia: No - Suicidal Assessment Feels Threatened In Home Enviroment: No Family/Social History - Physician Review Nursing Documentation Reviewed: Yes Family/Social History: No Known Family HX Smoking Status: Never Smoked Hx Alcohol Use: No Hx Substance Use: No Hx Substance Use Treatment: No Allergies/Home Meds Allergies/Adverse Reactions: Allergies No Known Allergies Allergy (Verified 09/20/17 12:06) Home Medications: Home Meds Medication Instructions Recorded Confirmed Lisinopril 20 mg PO DAILY 11/07/12 09/20/17 Aspirin [Lo-Dose Aspirin EC] 32,581 mg PO DAILY 07/13/16 09/20/17 Cilostazol [Pletal] 100 mg PO BID 07/13/16 09/20/17 Insulin Human Isophane (NPH) 15 unit SC QAM 07/13/16 09/20/17 [Novolin N] Insulin Human Isophane (NPH) 18 unit SC HS 07/13/16 09/20/17 [Novolin N] Insulin Human Regular-LOW [HumuLIN 8 units SC ACHS 07/13/16 09/20/17 R LOW] Atenolol [Tenormin] 50 mg PO DAILY 11/04/16 09/20/17 Clopidogrel [Plavix] 75 mg PO DAILY 11/04/16 09/20/17 Rosuvastatin Calcium [Crestor] 20 mg PO DAILY 11/04/16 09/20/17 Cholecalciferol (Vitamin D3) 1,000 unit PO DAILY 06/02/17 09/20/17 [Vitamin D3] Review of Systems - Review of Systems Constitutional: Fatigue Eyes: Normal ENT: Normal Respiratory: SOB Cardiovascular: Palpitations, Other (near syncope). absent: Chest Pain Gastrointestinal: Nausea, Vomiting. absent: Abdominal Pain Genitourinary Female: Normal Musculoskeletal: Normal Skin: Normal Neurological: Dizziness Endocrine: Normal Hemo/Lymphatic: Normal Physical Exam Vital Signs Reviewed: Yes Vital Signs Temp Pulse Resp BP Pulse Ox 09/20/17 12:17 92 H 20 118/74 95 09/20/17 10:16 98 F 96 H 16 113/50 L 95 Temperature: Afebrile Blood Pressure: Normal Pulse: Regular Respiratory Rate: Normal Appearance: Positive for: Well-Appearing, Non-Toxic, Other (mildly uncomfortable , alert/awake, GCS = 15, oriented x 2 (not to date/time), resting in bed, cooperative, follows command with ease) Pain Distress: None Mental Status: Positive for: other (alert/awake, oriented x 2 (not to date/time) ) Finger Stick Blood Glucose: 444 - Systems Exam Head: Present: Atraumatic, Normocephalic, Other (mild bi-temporal wasting noted) Pupils: Present: PERRL, Other (visual field intact b/l, no nystagmus, no photophobia, sclera anicteric) Extroacular Muscles: Present: EOMI Conjunctiva: Present: Normal Ears: Present: Normal Mouth: Present: Other (mild dry oral mucosa, fair dentitions, no drooling/ stridor, no exudate/lesions, uvula/tongue are midline) Pharnyx: Present: Normal Nose (External): Present: Atraumatic Nose (Internal): Present: Normal Inspection Neck: Present: Normal Range of Motion, Trachea Midline. No: MIDLINE TENDERNESS Respiratory/Chest: Present: Clear to Auscultation, Good Air Exchange. No: Respiratory Distress Cardiovascular: Present: Regular Rate and Rhythm, Normal S1, S2. No: Murmurs Abdomen: Present: Normal Bowel Sounds, Other (well nourished female, no focal tenderness, no masses/rebound/guarding/rigidity, no hobbs's sign, no mcburney' s point tenderness). No: Tenderness Back: Present: Normal Inspection. No: CVA Tenderness, Midline Tenderness Upper Extremity: Present: Normal Inspection, Normal ROM, NORMAL PULSES, Neurovascularly Intact, Capillary Refill < 2s, Other (+ left arm in a cast; otherwise neurovasc intact b/l, strength 5/5 grossly intact in all limbs) Lower Extremity: Present: Normal Inspection, NORMAL PULSES, Normal ROM, Neurovascularly Intact, Capillary Refill < 2 s Neurological: Present: GCS=15, CN II-XII Intact, Speech Normal, Other (CNII-XII WNL, no facial asymmetries, no slurr speech, NIH stroke scale ~ 0) Skin: Present: Warm, Normal Color, Other (cap refill < 1sec, no ulcerations, no petechiae) Psychiatric: Present: Alert Medical Decision Making ED Course and Treatment: 09/20/17 10:34 Impression: near syncope, dizziness; elevated GLUC i have consider all the differential diagnosis regarding pt's chief medical complaints/clinical findings, including but are not limited to: near syncope, dizziness; elevated GLUC A/P: near syncope/dizziness, hyperglycemia - labs - acs eval - ct - observe - supportive care 09/20/17 10:40 Due to EKG changes with ST depressions, consulted [facility] Cath/cardiologists - Dr Velasco, who is made aware, due to pt's lack of Chest pain complaint and with St depressions, NO CODE Heart activation is recommended; agrees with medical treatment and admission to PCP 09/20/17 11:15 pt remained chest pain free pt is made aware of her medical results agrees with admission I spoke to Dr Alexander Campa, pt's PCP, made aware, agrees with admission; would like to consult Dr Lopes (cards) 09/20/17 1230 pt is currently comfortable pt is not in any distress family are made aware of pt's medical results agrees with admission Re-evaluation Time: 10:40 Reassessment Condition: Improving,but remains with symptoms - Critical Care Critical Care Minutes: 45 minutes Critical Care Time: Excluding Proc Time Narrative Critical Care (Text): 09/20/17 10:41 critical care time: 45min, excluding procedure time, excluding time teaching residents/students/mid-level providers; including initial eval/diagnosis, diagnostic interpretation, re-eval, consultations, final disposition - Lab Interpretations Lab Results: 09/20/17 10:50 09/20/17 10:50 Lab Results 09/20/17 10:50: WBC 7.6, RBC 4.16, Hgb 11.6 L, Hct 34.2 L, MCV 82.2, MCH 27.9, MCHC 33.9, RDW 12.6, Plt Count 232, MPV 10.2, Gran % 92.5 H, Lymph % (Auto) 5.6 L, Owsley % (Auto) 1.7, Eos % (Auto) 0.1 L, Baso % (Auto) 0.1, Gran # 6.99 H, Lymph # (Auto) 0.4 L, Owsley # (Auto) 0.1, Eos # (Auto) 0.0, Baso # (Auto) 0.01, Neutrophils % (Manual) 92 H, Band Neutrophils % 3 H, Lymphocytes % (Manual) 3 L , Monocytes % (Manual) 2, Platelet Evaluation Normal 09/20/17 10:50: Sodium 131 L, Potassium 4.6, Chloride 95 L, Carbon Dioxide 17 L , Anion Gap 24 H, BUN 36 H, Creatinine 1.5 H, Est GFR ( Amer) 40, Est GFR (Non-Af Amer) 33, Random Glucose 624 H* D, Calcium 10.0, Total Bilirubin 1.7 H, AST 17, ALT 25, Alkaline Phosphatase 91, Troponin I 0.03 D, Total Protein 6.5, Albumin 3.9, Globulin 2.6, Albumin/Globulin Ratio 1.5, Lipase 18 L 09/20/17 10:24: POC Glucose (mg/dL) 444 H* I have reviewed the lab results: Yes Interpretation: Abnormal lab values (elevated GLU/BUN/creat) - RAD Interpretation Narrative RAD Interpretations (Text): 09/20/17 13:41 HISTORY: dizziness COMPARISON: 06/02/2017 TECHNIQUE: Chest PA and lateral FINDINGS: LUNGS: No active pulmonary disease. PLEURA: No significant pleural effusion identified. No pneumothorax apparent. CARDIOVASCULAR: Normal. OSSEOUS STRUCTURES: No significant abnormalities. VISUALIZED UPPER ABDOMEN: Normal. OTHER FINDINGS: None. IMPRESSION: No active disease. 09/20/17 13:41 PROCEDURE: CT HEAD WITHOUT CONTRAST. HISTORY: intermittent dizziness, fell 1 week ago COMPARISON: None available. TECHNIQUE: Axial computed tomography images were obtained through the head/brain without intravenous contrast. Radiation dose: Total exam DLP = mGy-cm. This CT exam was performed using one or more of the following dose reduction techniques: Automated exposure control, adjustment of the mA and/or kV according to patient size, and/or use of iterative reconstruction technique. FINDINGS: HEMORRHAGE: No intracranial hemorrhage. BRAIN: No mass effect or edema. No atrophy or chronic microvascular ischemic changes. VENTRICLES: Unremarkable. No hydrocephalus. CALVARIUM: Unremarkable. PARANASAL SINUSES: Unremarkable as visualized. No significant inflammatory changes. MASTOID AIR CELLS: Unremarkable as visualized. No inflammatory changes. OTHER FINDINGS: None. IMPRESSION: Normal CT of the Head. Radiology Orders: 09/20/17 10:31 HEAD W/O CONTRAST [CT] Stat 09/20/17 10:33 CHEST TWO VIEWS (PA/LAT) [RAD] Stat Golf Caddie: Radiologist - EKG Interpretation EKG Interpretation (Text): 09/20/17 10:41 NSR at 95 bpm, normal axis, no ectopy, qs in leads III, + ST depression noted V3 -5, slight peaked T in elads V2-4, ABNL EKG; changes compare with old ekg 2016 Interpreted by ED Physician: Yes Type: 12 lead EKG Comparison: Different from prev. EKG - Medication Orders Current Medication Orders: Discontinued Medications Aspirin (Aspirin) 325 mg PO STAT STA Stop: 09/20/17 10:34 Last Admin: 09/20/17 10:57 Dose: 325 mg Sodium Chloride (Sodium Chloride 0.9%) 500 mls @ 999 mls/hr IV .Q31M STA Stop: 09/20/17 11:03 Last Admin: 09/20/17 10:58 Dose: 999 mls/hr eMAR Start Stop Document 09/20/17 10:58 LA (Rec: 09/20/17 10:58 JORDAN [id number]) Intravenous Solution Start Date 09/20/17 Start Time 10:58 Insulin Human Regular (Humulin R) 10 units SC ONCE ONE Stop: 09/20/17 11:50 Last Admin: 09/20/17 12:00 Dose: 10 units MAR Blood Glucose Document 09/20/17 12:00 LA (Rec: 09/20/17 12:01 JORDAN [id number]) Blood Glucose Finger Stick Blood Glucose (70-120) 444 Subcutaneous Administrations Document 09/20/17 12:00 LA (Rec: 09/20/17 12:01 JORDAN [id number]) Injection Site MAR Injection Site Right Abdomen Charges for Administration # of Subcutaneous Administrations 1 Ondansetron HCl (Zofran Inj) 4 mg IVP STAT STA Stop: 09/20/17 10:34 Last Admin: 09/20/17 10:56 Dose: 4 mg IVP Administration Document 09/20/17 10:56 JORDAN (Rec: 09/20/17 10:56 JORDAN [id number]) Charges for Administration # of IVP Administrations 1 - Scribe Statement The provider has reviewed the documentation as recorded by the Scribe Michelle Buchanan Provider Scribe Attestation: All medical record entries made by the Scribe were at my direction and personally dictated by me. I have reviewed the chart and agree that the record accurately reflects my personal performance of the history, physical exam, medical decision making, and the department course for this patient. I have also personally directed, reviewed, and agree with the discharge instructions and disposition. Disposition/Present on Arrival - Present on Arrival Any Indicators Present on Arrival: No History of DVT/PE: No History of Uncontrolled Diabetes: Yes Urinary Catheter: No History Surgical Site Infection Following: None - Disposition Have Diagnosis and Disposition been Completed?: Yes Diagnosis: Near syncope, Uncontrolled diabetes mellitus, Weakness, Dizziness Disposition: HOSPITALIZED Disposition Time: 11:15 Patient Plan: Admission Patient Problems: Current Active Problems Problem Status Onset Near syncope Acute Uncontrolled diabetes mellitus Acute Weakness Acute Condition: FAIR
[2017-09-20] MEDS ORDERED: Sodium Chloride 0.9% 500 ML IV STA (10:33)
[2017-09-20 11:04] LABS: BASO # 0.01 K/mm3 (0.0-2.0); BASO % 0.1 % (0.0-3.0); EOS % 0.1 % (1.5-5.0); GRAN # 6.99 (1.4-6.5); GRAN % 92.5 % (50.0-68.0); HEMOGLOBIN 11.6 g/dL (12.0-16.0); LYMPH # 0.4 (1.2-3.4); LYMPH % 5.6 % (22.0-35.0); MEAN CELL VOLUME 82.2 fl (80.0-105.0); MEAN CORPUSCULAR HEMOGLOBIN 27.9 pg (25.0-35.0); MEAN CORPUSCULAR HGB CONC 33.9 g/dl (31.0-37.0); MEAN PLATELET VOLUME 10.2 fl (7.0-11.0); MONO # 0.1 (0.1-0.6); MONO % 1.7 % (1.0-6.0); PLATELET COUNT 232 10^3/uL (120.0-450.0); RBC 4.16 10^6/uL (3.5-6.1); RED CELL DISTRIBUTION WIDTH 12.6 % (11.5-14.5); WHITE BLOOD COUNT 7.6 10^3/ul (4.5-11.0)
[2017-09-20 11:22] LABS: ALB/GLOB RATIO 1.5 (1.1-1.8); ALBUMIN 3.9 g/dL (3.0-4.8)
[2017-09-20 11:24] LABS: TROPONIN I 0.03 ng/mL
[2017-09-20 11:31] LABS: BAND 3 % (0-2); LYMPHOCYTE 3 % (22.0-35.0); MONOCYTE 2 % (1.0-6.0); NEUTROPHIL 92 % (50.0-70.0)
[2017-09-20 11:32] LABS: PLATELET ESTIMATE NORMAL (NORMAL)
[2017-09-20] MEDS ORDERED: Insulin Regular 1 UNITS/0.01 ML ML SC ONE (11:49)
--- NOTE | 2017-09-20 11:54 | CT ---
PROCEDURE: CT HEAD WITHOUT CONTRAST. HISTORY: intermittent dizziness, fell 1 week ago COMPARISON: None available. TECHNIQUE: Axial computed tomography images were obtained through the head/brain without intravenous contrast. Radiation dose: Total exam DLP = mGy-cm. This CT exam was performed using one or more of the following dose reduction techniques: Automated exposure control, adjustment of the mA and/or kV according to patient size, and/or use of iterative reconstruction technique. FINDINGS: HEMORRHAGE: No intracranial hemorrhage. BRAIN: No mass effect or edema. No atrophy or chronic microvascular ischemic changes. VENTRICLES: Unremarkable. No hydrocephalus. CALVARIUM: Unremarkable. PARANASAL SINUSES: Unremarkable as visualized. No significant inflammatory changes. MASTOID AIR CELLS: Unremarkable as visualized. No inflammatory changes. OTHER FINDINGS: None. IMPRESSION: Normal CT of the Head.
--- NOTE | 2017-09-20 12:17 | RAD ---
HISTORY: dizziness COMPARISON: 06/02/2017 TECHNIQUE: Chest PA and lateral FINDINGS: LUNGS: No active pulmonary disease. PLEURA: No significant pleural effusion identified. No pneumothorax apparent. CARDIOVASCULAR: Normal. OSSEOUS STRUCTURES: No significant abnormalities. VISUALIZED UPPER ABDOMEN: Normal. OTHER FINDINGS: None. IMPRESSION: No active disease.
[2017-09-20 12:22] LABS: VENOUS BLOOD GAS BASE EXCESS -5.3 mmol/L (0.0-2.0); VENOUS BLOOD GAS PO2 49 mm/Hg (30-55); VENOUS BLOOD PH 7.29 (7.32-7.43)
[2017-09-20] MEDS ORDERED: Sodium Chloride 0.9% 1,000 ML IV SCH (14:30)
[2017-09-20] MEDS: Insulin Reg-LOW-Coverage SC SCH ×2 (15:38→22:09)
[2017-09-20 17:05] VITALS: BMI 21.5
[2017-09-20] MEDS ORDERED: Influenza Vaccine 60 mcg/0.5 mL SYR (4YR UP) IM ONE (17:05)
[2017-09-20] MEDS ORDERED: Pneumococcal 23-Valent Vaccine IM ONE (17:05)
[2017-09-20 17:55] LABS: URINE BILIRUBIN NEGATIVE (NEGATIVE); URINE BLOOD SMALL (NEGATIVE); URINE GLUCOSE (UA) >=1000 mg/dL (NEGATIVE); URINE LEUKOCYTE ESTERASE NEGATIVE Leu/uL (NEGATIVE); URINE PROTEIN 30 mg/dL (<30 mg/dL); URINE UROBILINOGEN 0.2 E.U./dL (<1 E.U./dL)
[2017-09-20 17:56] LABS: URINE APPEARANCE SL CLOUDY (CLEAR); URINE COLOR YELLOW (YELLOW)
[2017-09-20 18:05] LABS: URINE BACTERIA MANY (NEG)
[2017-09-20] MEDS: Sodium Chloride 0.9% 1,000 ML IV SCH (19:10)
[2017-09-20] MEDS: Insulin Human NPH 1 UNITS/0.01 ML SC SCH (21:40)
[2017-09-20] MEDS ORDERED: Insulin Human NPH 1 UNITS/0.01 ML SC SCH (22:00)
[2017-09-21] MEDS: Sodium Chloride 0.9% 1,000 ML IV SCH ×3 (01:30→22:07)
[2017-09-21 07:34] LABS: BASO # 0.01 K/mm3 (0.0-2.0); BASO % 0.2 % (0.0-3.0); EOS # 0.1 (0.0-0.7); EOS % 1.3 % (1.5-5.0); GRAN # 4.66 (1.4-6.5); GRAN % 77.2 % (50.0-68.0); HEMOGLOBIN 10.2 g/dL (12.0-16.0); LYMPH % 15.8 % (22.0-35.0); MEAN CELL VOLUME 79.8 fl (80.0-105.0); MEAN CORPUSCULAR HEMOGLOBIN 27.5 pg (25.0-35.0); MEAN CORPUSCULAR HGB CONC 34.5 g/dl (31.0-37.0); MEAN PLATELET VOLUME 9.6 fl (7.0-11.0); MONO # 0.3 (0.1-0.6); MONO % 5.5 % (1.0-6.0); RBC 3.71 10^6/uL (3.5-6.1); RED CELL DISTRIBUTION WIDTH 12.7 % (11.5-14.5)
[2017-09-21 07:41] LABS: INR 1.12 (0.93-1.08); PARTIAL THROMBOPLASTIN TIME 24.9 Seconds (25.1-36.5); PROTHROMBIN TIME 12.9 SECONDS (9.4-12.5)
[2017-09-21 07:52] LABS: ALB/GLOB RATIO 1.2 (1.1-1.8); CALCIUM 9.3 mg/dL (8.4-10.5)
[2017-09-21] MEDS: Insulin Reg-LOW-Coverage SC SCH ×4 (07:57→22:06)
[2017-09-21] MEDS: Enoxaparin 40 mg Syringe SC SCH (09:55)
[2017-09-21] MEDS ORDERED: Insulin Human NPH 1 UNITS/0.01 ML SC SCH (10:00)
--- NOTE | 2017-09-21 10:14 | CARD ---
APPROVED REPORT EKG Measurement Heart [id number] <Conclusion> Normal sinus rhythm STW changes c/w ischemia, new
--- NOTE | 2017-09-21 10:46 | CARD ---
APPROVED REPORT EKG Measurement Heart [id number] <Conclusion> Normal sinus rhythm Normal ECG Improved STTW changes c/w ECG 09/20/17
--- NOTE | 2017-09-21 11:43 | CON ---
DATE: 09/21/2017 INDICATIONS: Dizziness with fall, hyperglycemia. HISTORY OF PRESENT ILLNESS: This is an 87-year-old woman, known to me, admitted through the emergency room. She was brought there by family when she complained of dizziness, diaphoresis and fall at home. Her blood sugar was elevated in the 500 range. She was admitted to telemetry. She is confused. Information is from the chart. She is a poor historian. About a week ago, she fell at home with a fracture of the left arm - apparently, this was treated and casted at [facility]. There is a history of diabetes, hypertension, hyperlipidemia, chronic kidney disease, PAD, and dementia. She has a remote appendectomy and colon surgery. She has a recent [facility] admission for chest pain. There is no history of rheumatic fever, myocardial infarction, arrhythmia, stroke, TIA, or gout. MEDICATIONS AT THE TIME OF ADMISSION: Include Crestor, lisinopril, aspirin, insulin, Plavix, Pletal, Tenormin, and vitamin D3. ALLERGIES: THERE ARE NO MEDICATION ALLERGIES. FAMILY HISTORY: Noncontributory. SOCIAL HISTORY: She lives at home with her cousin. She is not very ambulatory. She does not smoke. She does not drink. REVIEW OF SYSTEMS: Unremarkable PHYSICAL EXAMINATION: GENERAL: She is an elderly woman, lying in bed, in no acute distress. She is in sinus rhythm. She is afebrile. VITAL SIGNS: Blood pressure 125/50, respirations 20, and O2 saturations 97% on room air. HEENT: Reveals no neck vein distention, thyromegaly, or carotid bruits. Mucous membranes moist. Conjunctivae pink. NECK: Supple. LUNGS: Lung rosales are clear. HEART: Revealed a regular rhythm. Normal first and second heart sounds. ABDOMEN: Soft. Bowel sounds are present. No mass, organomegaly, tenderness, rebound, or guarding. No CVA tenderness. No palpable abdominal aortic aneurysm. EXTREMITIES: Reveal no cyanosis, clubbing, or edema. NEUROLOGICAL: Dementia. PSYCHIATRIC: Dementia. SKIN: Warm and dry. No rash or cellulitis. LABORATORY DATA AND IMAGING: CT scan of the head was unremarkable. EKG demonstrates regular sinus rhythm with mild ST depressions noted. Repeat EKG this morning shows improvement and a normal EKG. Chest x-ray shows no active disease. White count normal, hemoglobin 10.2, hematocrit 29.6, platelet count normal, PT/INR 12.9 and 1.12, and PTT 24.9. Blood gases are noted. Chemistries are notable for sodium 131, potassium 4.6, BUN 36, creatinine 1.5, blood sugar 444, repeat 624, total bilirubin 1.7. AST and ALT unremarkable. Troponin is 0.03. Lipase normal. Sodium today 136, creatinine today 1.3, blood sugar today 215. Urinalysis is noted. IMPRESSION: Audrey Crooks is an 87-year-old woman, admitted with dizziness, diaphoresis, not feeling well with marked hyperglycemia, and history of recent fall. Her initial EKG showed ischemic changes, but this has improved. Repeat troponin pending. At this time, a conservative course of cardiac care is indicated given her frail condition. She received aspirin. I would continue Crestor,lisinopril, Plavix, and Tenormin. She is being treated for hyperglycemia. She got IV fluids. She can be out of bed to chair. We will monitor I's and O's. We will check stool for occult blood. I will follow along with you and make additional recommendations based on her clinical course. Ayan Townsend MD MTDMitali
--- NOTE | 2017-09-21 21:31 | RAD ---
PROCEDURE: Left Wrist Radiographs. HISTORY: lt wrist fx COMPARISON: None. FINDINGS: BONES: The left forearm and left wrist are in cast which limits the evaluation. There is displaced fracture at distal left radius extending to the articular surface. There is also displaced fracture at the styloid process of the distal left ulna JOINTS: No evidence of dislocation. SOFT TISSUES: Normal. OTHER FINDINGS: None. IMPRESSION: Displaced fracture at the distal left radius and ulna.
[2017-09-21] MEDS: Insulin Human NPH 1 UNITS/0.01 ML SC SCH (22:06)
--- NOTE | 2017-09-21 23:27 | CON ---
DATE: 09/21/2017 ORTHOPEDIC CONSULTATION HISTORY OF PRESENT ILLNESS: The patient was seen in the Emergency Room last night, admitted for multiple medical issues and she had a fracture of her left distal radius, which was treated appropriately at [facility] on 09/14/2017 and I know about it because I was on-call and I got x-rays submitted to me by the resident. We decided to treat the patient closed without any surgery and put her in a well-fitted coaptation splint, and there is no pain today, which is a week later. She does have some resolving ecchymosis and subcutaneous hematoma from the comminuted and osteoporotic fracture, but there is normal color of the subungual region of the nail beds. So it is just a resolving ecchymosis, nothing to do for bad circulation, so keep the arm elevated as much as possible. She had made an appointment to see me next week and I will probably change the cast to a short arm cast. I cannot do that now because that will be too painful, being it only a week after surgery, the fracture very well could move. We will get a followup x-ray in the meantime to make sure things status quo, which clinically it looks like it is good position. She is not a surgical candidate as this is not her dominant wrist and the x-rays looked very good a week ago. FINAL DIAGNOSIS: Osteoporotic comminuted, mildly impacted fracture of left distal radius with ecchymosis from subcutaneous hematoma, but normal circulation. I will follow her here while she is in the hospital and that we will plan to see her in approximately 10 days to do a cast change for this type of comminuted fracture with subcutaneous ecchymosis, but normal circulation. Jordan Monge DO DIVINA
--- NOTE | 2017-09-22 02:24 | HP ---
CHIEF COMPLAINT AND HISTORY OF PRESENT ILLNESS: This is an 87-year-old female, who comes into the hospital with complaints of dizziness. Her sugars are uncontrolled at home. She stated that her cousin has been sick and has not been able to help her. She states that she has no abdominal pain or chest pain. No shortness of breath. She has been having increased urinary frequency, but no dysuria. She said that her appetite has been poor. She denies any weakness in the arms or the legs. She said that she had a fall about one week ago and had a fracture in the left arm and was casted at [facility]. The patient denies any incontinence. REVIEW OF SYSTEMS: All other review of symptoms are within normal limits except what was mentioned. ALLERGIES: NO KNOWN DRUG ALLERGIES. HOME MEDICATIONS: Have been reviewed on the . PAST MEDICAL HISTORY: 1. Diabetes type 2 x20 years. 2. Dyslipidemia. 3. Hypertension. PAST SURGICAL HISTORY: Cardiac catheterization and bilateral cataract surgeries. FAMILY HISTORY: Father at 80 of throat cancer. Mother at 65 of diabetes. PHYSICAL EXAMINATION: VITAL SIGNS: Temperature is 98.5, pulse of 67, blood pressure 125/95, respirations 20, and O2 saturation is 97%. Height is 5 feet 2 inches, weight is 121 pounds, and BMI is 22.1. GENERAL: The patient lying in bed, uncomfortable, and in no acute distress. HEENT: Atraumatic and normocephalic. Anicteric sclerae. Moist mucosa. [place] conjunctivae. No oral lesions. NECK: No JVD, anterior and posterior adenopathy, thyromegaly, or bruits. CARDIOVASCULAR: S1 and S2 regular. No murmur, rubs, or gallop. LUNGS: Clear to auscultation bilaterally. No wheezes, rales, or rhonchi. ABDOMEN: Bowel sounds are positive. Soft, nontender and nondistended. No hepatosplenomegaly. No rebound and no guarding. EXTREMITIES: No cyanosis, clubbing, or edema. NEUROLOGIC: No facial asymmetry. Tongue is midline. No uvula deviation. Power is 5/5 upper extremity and lower extremity. Sensation intact in upper extremity and lower extremity. PSYCHIATRIC: She is awake, alert and oriented x3. No anxiety or depression. She has normal affect. GENITOURINARY: No CVA tenderness. VASCULAR: 2+ pulses in the carotid pulses and pedal pulses. SKIN: No erythema or nodules. SPINE: Shows normal curvature. A CT of the head done shows a normal CT. EKG shows sinus rhythm at 68 with a QTc of 421. A chest x-ray done shows no active disease. Labs have been reviewed. The patient's creatinine was 1.5. The patient's glucose was 444. Troponin was 1.9. ASSESSMENT: 1. Diabetes type 2, uncontrolled. 2. Hypertension. 3. Elevated troponin. 4. Dyslipidemia. PLAN: The patient must be admitted to the hospital. She is going to be seen by Dr. Townsend. She has abnormal EKG as well as elevated troponins. The patient is going to be seen by Dr. Monge because of the olecranon fracture, in the cast. The patient is on Lipitor for dyslipidemia. She is going to be on Lovenox for DVT prophylaxis. She is going to continue with Pepcid. She was given IV fluids. She is on lisinopril for her hypertension. The patient is on aspirin. I will also add on beta-blockers. We will continue to follow the patient's sugars closely. Dileep Yang MD
[2017-09-22] MEDS: Insulin Reg-LOW-Coverage SC SCH ×3 (07:51→16:55)
--- NOTE | 2017-09-22 08:40 | CP.PCM.PN ---
Subjective - Date & Time of Evaluation Date of Evaluation: 09/22/17 Time of Evaluation: 07:00 - Subjective Subjective: Stable on 3R. More alert. No CP or SOB. Nocturnal agitation reported V/S noted. PE: Lungs: clear Cor.: S1S2 Abd.: soft Ext.: no edema Neuro.: alert I/O= 120/900 recorded Labs noted. Second trop - 1.93 BSs noted: 43 - 280 recently ECG 09/21 noted: RSR, improved ST changes Objective - Vital Signs/Intake and Output Vital Signs (last 24 hours): Temp Pulse Resp BP Pulse Ox 98.2 F 61 20 153/82 H 97 09/22/17 06:00 09/22/17 06:00 09/22/17 06:00 09/22/17 06:00 09/22/17 06:00 Intake and Output: 09/22/17 09/22/17 06:59 18:59 Intake Total 600 120 Output Total 600 900 Balance 0 -780 - Medications Medications: Current Medications Acetaminophen (Tylenol 325mg Tab) 650 mg PO Q6 PRN PRN Reason: Pain, Mild (1-3) Last Admin: 09/20/17 15:11 Dose: 650 mg Aspirin (Aspirin Chewable) 81 mg PO DAILY [facility] Last Admin: 09/21/17 09:54 Dose: 81 mg Atenolol (Tenormin) 50 mg PO DAILY [facility] Last Admin: 09/21/17 09:53 Dose: 50 mg Atorvastatin Calcium (Lipitor) 20 mg PO DIN [facility] Last Admin: 09/21/17 17:23 Dose: 20 mg Clopidogrel Bisulfate (Plavix) 75 mg PO DAILY [facility] Last Admin: 09/21/17 09:52 Dose: 75 mg Enoxaparin Sodium (Lovenox) 40 mg SC DAILY [facility] PRN Reason: Protocol Last Admin: 09/21/17 09:55 Dose: 40 mg Famotidine (Pepcid) 20 mg PO DAILY [facility] Last Admin: 09/21/17 09:54 Dose: 20 mg Insulin Human NPH (Humulin N) 18 units SC HS [facility] Last Admin: 09/21/17 22:06 Dose: Not Given Insulin Human NPH (Humulin N) 15 units SC QAM [facility] Last Admin: 09/21/17 09:56 Dose: 15 units Insulin Human Regular (Humulin R Low) 0 units SC ACHS [facility] PRN Reason: Protocol Last Admin: 09/22/17 07:51 Dose: Not Given Lisinopril (Zestril) 10 mg PO DAILY [facility] Last Admin: 09/21/17 09:54 Dose: 10 mg Metoprolol Tartrate (Lopressor) 25 mg PO Q12 [facility] Last Admin: 09/21/17 22:10 Dose: 25 mg Ondansetron HCl (Zofran Inj) 4 mg IVP Q6 PRN PRN Reason: Nausea/Vomiting - Labs Labs: 09/21/17 06:30 09/21/17 06:30 PT 12.9 SECONDS (9.4-12.5) H 09/21/17 06:30 INR 1.12 (0.93-1.08) H 09/21/17 06:30 APTT 24.9 Seconds (25.1-36.5) L 09/21/17 06:30 Assessment and Plan - Assessment and Plan (Free Text) Assessment: Dizziness/Diaphoresis/Not feeling well/Recent Fall with wrist fx. Hyperglycemia, initially + trop/R/O NSTEMI Diabetes HBP HLD CKD H/O appendectomy Plan: Check trop today Check ECG Check echo OOB to chair as last Monitor: I/O, sats., labs, BSs, etc.
[2017-09-22] MEDS: Insulin Human NPH 1 UNITS/0.01 ML SC SCH ×2 (09:37→22:15)
[2017-09-22] MEDS: Enoxaparin 40 mg Syringe SC SCH (09:38)
--- NOTE | 2017-09-22 11:04 | CARD ---
APPROVED REPORT EKG Measurement Heart [id number] <Conclusion> Sinus bradycardia Otherwise normal ECG No change
--- NOTE | 2017-09-22 11:06 | PN ---
DATE: 09/22/2017 SUBJECTIVE: An 87-year-old female. She had a left wrist fracture on 09/14/2017, in [facility]. We did a repeat x-ray in the cast of the left wrist on 09/21/2017, shows it is in acceptable position for an 87-year-old female. It is fairly well aligned and has evidence of early callus. It is too early to take the cast off. If we can get another 10 days out of this cast, then I could switch her to another cast, but the present cast is holding the left wrist in a good position and if I change it now, it is just going to unnecessarily hurt her, so we will wait for another 10 days and change the cast then in the office hopefully. Jordan Monge DO
[2017-09-22] MEDS: Cefepime 1gm in NS 100ml 1 GM/100 ML BAG IVPB SCH ×2 (14:55→21:05)
--- NOTE | 2017-09-22 15:23 | PN ---
DATE: 09/22/2017 SUBJECTIVE: The patient has no complaints of any chest pain. She is confused. She has no headaches or dizziness. PHYSICAL EXAMINATION: VITAL SIGNS: Temperature is 98.2, pulse of 61, blood pressure 153/82, respirations 20. GENERAL: The patient is lying in bed, flat, comfortable. HEENT: No oral lesion. Anicteric sclerae. Moist mucosa. NECK: No JVD, adenopathy, or thyromegaly. CARDIOVASCULAR: S1 and S2, regular. No murmurs, rubs, or gallops. LUNGS: Clear to auscultation bilaterally. No wheeze, rales, or rhonchi. ABDOMEN: Bowel sounds are positive, soft, nontender and nondistended. EXTREMITIES: No cyanosis, clubbing or edema. LABORATORY DATA: White count of 6.0, hemoglobin 10.2, creatinine is 1.3. ASSESSMENT: 1. Displaced fracture of the left radius and ulna. 2. Delirium. 3. Diabetes type 2. 4. Urinary tract infection secondary to gram-negative rods. 5. Dyslipidemia. 6. Elevated troponin. PLAN: The patient is currently comfortable. She is on one-to-one because she is confused and is trying to get out of the bed. She is in danger of hurting herself. The patient is on aspirin daily for her coronary artery disease. She is on Plavix. She is going to be followed by Dr. Townsend. The patient is on Lipitor for dyslipidemia. She is on Lovenox for DVT prophylaxis. She is on lisinopril for hypertension. She has an echo that has been ordered. She will need physical therapy evaluation. The patient will most likely need subacute rehab or possibly TCU. We will see if she qualifies for the Transitional Care Unit. Dileep Yang MD
[2017-09-22 16:48] LABS: URINE BILIRUBIN NEGATIVE (NEGATIVE); URINE BLOOD TRACE-INTACT (NEGATIVE); URINE GLUCOSE (UA) NEGATIVE (NEGATIVE); URINE LEUKOCYTE ESTERASE SMALL Leu/uL (NEGATIVE); URINE PROTEIN NEGATIVE mg/dL (<30 mg/dL); URINE UROBILINOGEN 0.2 E.U./dL (<1 E.U./dL)
[2017-09-22 17:05] LABS: URINE APPEARANCE SL CLOUDY (CLEAR); URINE COLOR STRAW (YELLOW)
[2017-09-22 17:16] LABS: URINE BACTERIA MOD (NEG); URINE RBC 0 - 2 /hpf (0-2)
--- NOTE | 2017-09-23 02:29 | CON ---
DATE: 09/22/2017 LOCATION: The patient is seen in room 377, bed 1. CHIEF COMPLAINT: The patient is confused times several days. HISTORY OF PRESENT ILLNESS: This is an 87-year-old female with diabetes mellitus, hypertension, coronary artery disease, gastritis, hyperlipidemia, renal disease, she had a left wrist fracture, admitted here because of near syncopal, dizziness and hyperglycemia. Infectious Disease consultation requested because of Gram-negative alba in the urine culture. REVIEW OF SYSTEMS: Revealed there has been no fevers documented, no chills. She is confused, baseline mental status is unclear. No chest pain, shortness of breath or cough. No hemoptysis. PAST MEDICAL HISTORY: Significant for diabetes, hypertension, coronary artery disease, gastritis, hyperlipidemia and renal disease. PAST SURGICAL HISTORY: Significant for appendectomy, gastric bypass and cataract surgery. ALLERGIES: PATIENT IS ALLERGIC TO ATORVASTATIN. MEDICATIONS AT HOME: Include the patient to be on insulin, rosuvastatin, clopidogrel, vitamin D, aspirin and atenolol. PHYSICAL EXAMINATION: GENERAL: On exam, patient is in bed, in no acute distress. She is awake. She knows who she is, but she is not sure where she is or what year it is. She states she lives with her parents. VITAL SIGNS: Temperature of 98, blood pressure is 150/80, respiratory rate of 20, heart rate of 96. HEENT: Unremarkable. NECK: Supple. LUNGS: Have decreased breath sounds. HEART: Normal S1, S2. ABDOMEN: Soft, nontender. No organomegaly. No rebound, no guarding, no masses. LABORATORY DATA; Laboratory examination reveals a white count of 7.6, hemoglobin 11, platelets of 232 and 92% granulocytosis. Chemistries reveal a BUN of 35, creatinine of 1.3. LFTs are normal. Urinalysis reveals 5 to 10 wbc's, many bacteria, negative leukocyte esterase and 30 protein. Microbiology reveals Gram-negative alba in the urine. Patient had a chest x-ray, which showed no active disease and CAT scan of the head, which is unremarkable. ASSESSMENT AND PLAN: An 87-year-old female with diabetes, hypertension, coronary artery disease, gastritis, hyperlipidemia, renal disease with Gram-negative alba urinary tract infection, left wrist fracture, syncope and [id number] myocardial infarction. We will treat the patient with Maxipime. We will order blood cultures x2. We will repeat urinalysis and urine culture. We will make further recommendations upon availability of initial results. Sadiq Douglas MD
[2017-09-23] MEDS: Cefepime 1gm in NS 100ml 1 GM/100 ML BAG IVPB SCH (05:58)
--- NOTE | 2017-09-23 07:45 | PQF AMI ---
Dr. Yang, This form is a permanent part of the medical record Patient admitted with elevated troponins, abnormal EKG. Please specify if AMI was ruled in, ruled out, undetermined. Clarification of your documentation is requested to better reflect the severity of illness and intensity of treatment of your patient. Indicators present [] Diagnosis of MD without specification of time frame (within 28 days of admission of greater than 28 days prior to admission) [] Diagnosis of subsequent MD (time frame of previous MD within 28 days of admission or greater than 28 days of admission) [] Diagnosis of MD w/o specified site [] EKG positive for changes (i.e.; ST elevation, non-ST elevation, Q-wave changes, etc.) [] Elevated Troponins [] Elevated Cardiac Enzymes [] Cardiac consult documentation of [] Chest pain/ACS/Unstable Angina [] Echo findings of [] Other: [] Location in the medical record that reflects the above clinical findings:[] Other Treatment Provided:[] PHYSICIAN'S RESPONSE Based on your medical judgment of the clinical indicators outlined above, are you treating this patient for a known or suspected: [ ] NSTEMI [ ] STEMI Site: [ ] [ ] ACS/Unstable Angina [ ] Angina :[ ] [ ] Other, please indicate [ ]___ If Unable to Determine, please check the box, sign and date Present On Admission (POA) Indicator: [ ] Present at the time of admission [ ] Not present at the time of admission [ ] Clinically Undetermined * If you have any questions please call:[ ] * Thank you, [ ]Zenaida Enriquez [facility] #[id number] sewing supervisor In responding to this query, please exercise your independent professional judgment. The fact that a question is asked does not imply that any particular answer is desired or expected. Thank you for your clarification on this documentation. DIVINA
[2017-09-23] MEDS: Insulin Reg-LOW-Coverage SC SCH ×4 (08:22→22:00)
[2017-09-23] MEDS: Insulin Human NPH 1 UNITS/0.01 ML SC SCH ×3 (09:21→22:00)
[2017-09-23] MEDS: Enoxaparin 40 mg Syringe SC SCH (09:22)
--- NOTE | 2017-09-23 10:31 | PN ---
DATE: 09/23/2017 SUBJECTIVE: The patient has no complaints of any chest pain. No shortness of breath. No headaches or dizziness. PHYSICAL EXAMINATION: VITAL SIGNS: Temperature is 98.3, pulse is 71, blood pressure 153/81, respirations 16. GENERAL: The patient is lying in bed, flat, comfortable. HEENT: No oral lesion. Anicteric sclerae. Moist mucosa. NECK: No JVD, adenopathy, or thyromegaly. CARDIOVASCULAR: S1 and S2, regular. No murmurs, rubs, or gallops. LUNGS: Clear to auscultation bilaterally. No wheeze, rales, or rhonchi. ABDOMEN: Bowel sounds are positive, soft, nontender and nondistended. EXTREMITIES: No cyanosis, clubbing or edema. LABORATORY DATA: White count of 6.0, hemoglobin 10.2, creatinine is 1.3. ASSESSMENT: 1. Displaced fracture of the left radius and ulna. 2. Delirium. 3. Diabetes type 2. 4. Urinary tract infection secondary to Klebsiella. 5. Dyslipidemia. 6. Elevated troponin. PLAN: The patient is currently comfortable. She has a very sensitive Klebsiella sensitive to ciprofloxacin. The patient is not having any pain. She was seen by physical therapy. She was confused and not able to participate in the physical therapy. She is not able to walk alone; most likely she would go to subacute rehab. The patient is on antibiotic of cefepime. She is on Pepcid. The patient is on Plavix daily. She is receiving atenolol. She did not have an PR. The patient has an echo that has been ordered by Dr. Townsend. She had sugars that were significantly elevated, they have been improving. She does not have a good support at home. Dileep Yang MD
[2017-09-23] MEDS ORDERED: Cefepime 1gm in NS 100ml 1 GM/100 ML BAG IVPB SCH (12:08)
[2017-09-23 21:27] VITALS: PULSE 56
--- NOTE | 2017-09-23 23:34 | CP.PCM.PN ---
Subjective - Date & Time of Evaluation Date of Evaluation: 09/23/17 Time of Evaluation: 23:33 - Subjective Subjective: Patient was seen at bedside. Nurse called me to have and order for some sedative because patient was sun downing. She was restless , agitated. She has no complaints. Denies chest pain, sob,nausea. Medical record was reviewed. H & H have been trending down.Patient has not received significan amount of IV fluids. This 87 year old woman was admitted with dizziness, increased urinary frequency , uncontrolled blood sugar, elevated troponin,anemia, hyperglycemia, renal insufficiency. Has PMH of DM II, HTN, dyslipidemia,cardiac catheterization, bilateral cataract surgery. Objective - Vital Signs/Intake and Output Vital Signs (last 24 hours): Temp Pulse Resp BP Pulse Ox 97.2 F L 56 L 18 143/63 96 09/23/17 16:00 09/23/17 16:00 09/23/17 16:00 09/23/17 16:00 09/23/17 16:00 Intake and Output: 09/23/17 09/24/17 18:59 06:59 Intake Total 360 660 Balance 360 660 - Medications Medications: Current Medications Acetaminophen (Tylenol 325mg Tab) 650 mg PO Q6 PRN PRN Reason: Pain, Mild (1-3) Last Admin: 09/20/17 15:11 Dose: 650 mg Aspirin (Aspirin Chewable) 81 mg PO DAILY [facility] Last Admin: 09/23/17 09:22 Dose: 81 mg Atenolol (Tenormin) 50 mg PO DAILY [facility] Last Admin: 09/23/17 09:22 Dose: 50 mg Atorvastatin Calcium (Lipitor) 20 mg PO DIN [facility] Last Admin: 09/23/17 18:28 Dose: Not Given Clopidogrel Bisulfate (Plavix) 75 mg PO DAILY [facility] Last Admin: 09/23/17 09:22 Dose: 75 mg Enoxaparin Sodium (Lovenox) 40 mg SC DAILY [facility] PRN Reason: Protocol Last Admin: 09/23/17 09:22 Dose: 40 mg Famotidine (Pepcid) 20 mg PO DAILY [facility] Last Admin: 09/23/17 09:22 Dose: 20 mg Cefepime HCl (Maxipime 1gm) 1 gm in 100 mls @ 100 mls/hr IVPB DAILY [facility] PRN Reason: Protocol Stop: 09/25/17 14:01 Insulin Human NPH (Humulin N) 18 units SC HS [facility] Last Admin: 09/23/17 22:00 Dose: 18 units Insulin Human NPH (Humulin N) 10 units SC QAM [facility] Last Admin: 09/23/17 09:49 Dose: Not Given Insulin Human Regular (Humulin R Low) 0 units SC ACHS [facility] PRN Reason: Protocol Last Admin: 09/23/17 22:00 Dose: 1 units Lisinopril (Zestril) 10 mg PO DAILY [facility] Last Admin: 09/23/17 09:22 Dose: 10 mg Lorazepam (Ativan) 0.5 mg IVP ONCE ONE PRN Reason: Protocol Stop: 09/23/17 23:34 Ondansetron HCl (Zofran Inj) 4 mg IVP Q6 PRN PRN Reason: Nausea/Vomiting - Labs Labs: 09/21/17 06:30 09/21/17 06:30 PT 12.9 SECONDS (9.4-12.5) H 09/21/17 06:30 INR 1.12 (0.93-1.08) H 09/21/17 06:30 APTT 24.9 Seconds (25.1-36.5) L 09/21/17 06:30 Micro Results 09/22/17 16:30 Blood Blood Culture - Preliminary NO GROWTH AFTER 24 HOURS 09/22/17 16:00 Blood Blood Culture - Preliminary NO GROWTH AFTER 24 HOURS 09/22/17 16:30 Urine Urine Culture - Final 10-50,000 CFU/ML. MULTIPLE SPECIES. PROBABLE CONTAMINATION. 09/20/17 21:13 Urine Urine Culture - Final Klebsiella Pneumoniae Ssp Pneu Most Recent Lab Values WBC 5.7 10^3/ul (4.5-11.0) 09/23/17 23:55 RBC 4.23 10^6/uL (3.5-6.1) 09/23/17 23:55 Hgb 11.8 g/dL (12.0-16.0) L 09/23/17 23:55 Hct 34.3 % (36.0-48.0) L 09/23/17 23:55 MCV 81.1 fl (80.0-105.0) 09/23/17 23:55 MCH 27.9 pg (25.0-35.0) 09/23/17 23:55 MCHC 34.4 g/dl (31.0-37.0) 09/23/17 23:55 RDW 13.0 % (11.5-14.5) 09/23/17 23:55 Plt Count 234 10^3/uL (120.0-450.0) 09/23/17 23:55 MPV 9.4 fl (7.0-11.0) 09/23/17 23:55 Gran % 66.9 % (50.0-68.0) 09/23/17 23:55 Lymph % (Auto) 21.8 % (22.0-35.0) L 09/23/17 23:55 [place] % (Auto) 7.6 % (1.0-6.0) H 09/23/17 23:55 Eos % (Auto) 3.3 % (1.5-5.0) 09/23/17 23:55 Baso % (Auto) 0.4 % (0.0-3.0) 09/23/17 23:55 Gran # 3.80 (1.4-6.5) 09/23/17 23:55 Lymph # (Auto) 1.2 (1.2-3.4) 09/23/17 23:55 [place] # (Auto) 0.4 (0.1-0.6) 09/23/17 23:55 Eos # (Auto) 0.2 (0.0-0.7) 09/23/17 23:55 Baso # (Auto) 0.02 K/mm3 (0.0-2.0) 09/23/17 23:55 Neutrophils % (Manual) 92 % (50.0-70.0) H 09/20/17 10:50 Band Neutrophils % 3 % (0-2) H 09/20/17 10:50 Lymphocytes % (Manual) 3 % (22.0-35.0) L 09/20/17 10:50 Monocytes % (Manual) 2 % (1.0-6.0) 09/20/17 10:50 Platelet Evaluation Normal (NORMAL) 09/20/17 10:50 PT 12.9 SECONDS (9.4-12.5) H 09/21/17 06:30 INR 1.12 (0.93-1.08) H 09/21/17 06:30 APTT 24.9 Seconds (25.1-36.5) L 09/21/17 06:30 pO2 49 mm/Hg (30-55) 09/20/17 12:00 VBG pH 7.29 (7.32-7.43) L 09/20/17 12:00 VBG pCO2 44.0 (40-60) 09/20/17 12:00 VBG HCO3 21.2 mmol/l (21-28) 09/20/17 12:00 VBG O2 Sat (Calc) 88.1 % (40-65) H 09/20/17 12:00 VBG Base Excess -5.3 mmol/L (0.0-2.0) L 09/20/17 12:00 Sodium 139 mmol/L (132-148) 09/23/17 23:55 Potassium 3.4 mmol/L (3.6-5.0) L 09/23/17 23:55 Chloride 102 mmol/L (98-107) 09/23/17 23:55 Carbon Dioxide 28 mmol/L (21-33) 09/23/17 23:55 Anion Gap 13 (10-20) 09/23/17 23:55 BUN 22 mg/dL (7-21) H 09/23/17 23:55 Creatinine 1.2 mg/dl (0.7-1.2) 09/23/17 23:55 Est GFR ( Amer) 52 09/23/17 23:55 Est GFR (Non-Af Amer) 43 09/23/17 23:55 POC Glucose (mg/dL) 58 mg/dL (65-110) L 09/24/17 05:13 Random Glucose 68 mg/dL (70-110) L 09/23/17 23:55 Serum Osmolality 316 mosm/kg (272-300) H 09/20/17 12:30 Calcium 10.1 mg/dL (8.4-10.5) 09/23/17 23:55 Total Bilirubin 1.1 mg/dL (0.2-1.3) 09/23/17 23:55 AST 31 U/L (14-36) 09/23/17 23:55 ALT 22 U/L (7-56) 09/23/17 23:55 Alkaline Phosphatase 85 U/L (38-126) 09/23/17 23:55 Troponin I 0.51 ng/mL H* D 09/23/17 23:55 Total Protein 6.4 g/dL (5.8-8.3) 09/23/17 23:55 Albumin 3.5 g/dL (3.0-4.8) 09/23/17 23:55 Globulin 2.9 gm/dL 09/23/17 23:55 Albumin/Globulin Ratio 1.2 (1.1-1.8) 09/23/17 23:55 Lipase 18 U/L (23-300) L 09/20/17 10:50 Urine Color Straw (YELLOW) 09/22/17 16:30 Urine Appearance Sl cloudy (CLEAR) 09/22/17 16:30 Urine pH 7.0 (4.7-8.0) 09/22/17 16:30 Ur Specific [place] <= 1.005 (1.005-1.035) 09/22/17 16:30 Urine Protein Negative mg/dL (<30 mg/dL) 09/22/17 16:30 Urine Glucose (UA) Negative mg/dL (NEGATIVE) 09/22/17 16:30 Urine Ketones Negative mg/dL (NEGATIVE) 09/22/17 16:30 Urine Blood Trace-intact (NEGATIVE) H 09/22/17 16:30 Urine Nitrate Negative (NEGATIVE) 09/22/17 16:30 Urine Bilirubin Negative (NEGATIVE) 09/22/17 16:30 Urine Urobilinogen 0.2 E.U./dL (<1 E.U./dL) 09/22/17 16:30 Ur Leukocyte Esterase Small Flaco/uL (NEGATIVE) H 09/22/17 16:30 Urine RBC 0 - 2 /hpf (0-2) 09/22/17 16:30 Urine WBC 5 - 10 /hpf (0-6) 09/22/17 16:30 Ur Epithelial Cells 4 - 5 /hpf (0-5) 09/22/17 16:30 Urine Bacteria Mod (NEG) 09/22/17 16:30 - Constitutional Appears: Well, No Acute Distress - Head Exam Head Exam: ATRAUMATIC, NORMAL INSPECTION, NORMOCEPHALIC - Eye Exam Eye Exam: Normal appearance - ENT Exam ENT Exam: Normal External Ear Exam - Neck Exam Neck Exam: Normal Inspection - Respiratory Exam Respiratory Exam: NORMAL BREATHING PATTERN - Cardiovascular Exam Cardiovascular Exam: absent: JVD - GI/Abdominal Exam GI & Abdominal Exam: absent: Distended - Rectal Exam Rectal Exam: Deferred - Exam Additional comments: Deferred. - Extremities Exam Extremities Exam: Normal Inspection - Back Exam Back Exam: NORMAL INSPECTION - Neurological Exam Neurological Exam: Altered - Psychiatric Exam Psychiatric exam: Agitated - Skin Skin Exam: Normal Color Assessment and Plan - Assessment and Plan (Free Text) Assessment: Sundowning . Agitation. R/O drop in H & H. R/O elevation of torponin. DM II. HTN. Dyslipidemia. S/P cardiac catheterization-remote. Sinus bradycardia. ST T changes on EKG. Plan: Ativan 0.5 mg IV was given. CBC,CMP, Troponin. EKG-----> Sinus bradycardia. Flipped T waves in III, aVF , new change, in comparision with EKG but not new change in comparision with one of the rhythm strip on 09/22/17. No drop in H & H. K -3.4 mEq.-K-dur liq given. Bl gl 58 mg %.-- OJ was given. Troponin is 0.51 down from 1.14
[2017-09-24 00:07] LABS: BASO # 0.02 K/mm3 (0.0-2.0); BASO % 0.4 % (0.0-3.0); EOS # 0.2 (0.0-0.7); EOS % 3.3 % (1.5-5.0); GRAN # 3.8 (1.4-6.5); GRAN % 66.9 % (50.0-68.0); HEMOGLOBIN 11.8 g/dL (12.0-16.0); LYMPH # 1.2 (1.2-3.4); LYMPH % 21.8 % (22.0-35.0); MEAN CELL VOLUME 81.1 fl (80.0-105.0); MEAN CORPUSCULAR HEMOGLOBIN 27.9 pg (25.0-35.0); MEAN CORPUSCULAR HGB CONC 34.4 g/dl (31.0-37.0); MEAN PLATELET VOLUME 9.4 fl (7.0-11.0); MONO # 0.4 (0.1-0.6); MONO % 7.6 % (1.0-6.0); RBC 4.23 10^6/uL (3.5-6.1); WHITE BLOOD COUNT 5.7 10^3/ul (4.5-11.0)
[2017-09-24 00:38] LABS: ALB/GLOB RATIO 1.2 (1.1-1.8); ALBUMIN 3.5 g/dL (3.0-4.8); CALCIUM 10.1 mg/dL (8.4-10.5); TROPONIN I 0.51 ng/mL
[2017-09-24] MEDS: Potassium Chloride 40 mEq/30 ml LIQ UD PO ONE ×2 (01:32→01:38)
[2017-09-24] MEDS ORDERED: Potassium Chloride 20 mEq ER Tab PO ONE (01:39)
--- NOTE | 2017-09-24 05:20 | PCM.FALL ---
<Gama Davis - Last Filed: 09/24/17 05:21> Post Fall Progress Note - Post Fall Fall Date: 09/24/17 Fall Time: 05:10 Description of Fall: Patient was up using the restroom w/ assistance by nurse, and when she went to sit down at the edge of the bed, she slid off the edge and hit her right knee against the bed. No LOC, head trauma or active bleeding. - Post Fall Exam Vital Sign: Temp Pulse Resp BP Pulse Ox 97.2 F L 56 L 18 143/63 96 09/23/17 16:00 09/23/17 16:00 09/23/17 16:00 09/23/17 16:00 09/23/17 16:00 Skull Exam: Negative for: Scalp wound Eye Exam: Positive for: Pupils equal Nose Exam: Negative for: Bleeding Skin Exam: Positive for: Bruising (multiple diffuse bruises noted ). Negative for: Lacerations Neck Exam: Negative for: Tenderness Spinal Exam: Negative for: Tenderness Chest Exam: Negative for: Difficulty breathing, Tenderness in ribs Arm Exam: Negative for: Deformity, Alteration in range of movement Leg Exam: Negative for: Deformity, Alteration in range of movement Impression/Plan: 87yo F PMH DM2, HTN, CAD, gastritis, HLD, CKD and L wrist fracture admitted for near syncope and hyperglycemia. CODE STAR called on patient due to sliding off bed. Patient has diffuse old bruising and some tenderness on R knee. Plan: - R knee XR to evaluate and r/o fractures; no ROM changes - VS obtained and stable - FS 58, will give the patient juice - continue to monitor patient; she is on [facility] system - continue management per primary team - fall risk high <NikaSurinder - Last Filed: 09/24/17 06:42> Post Fall Progress Note - Post Fall Exam Vital Sign: Temp Pulse Resp BP Pulse Ox 97.2 F L 56 L 18 143/63 96 09/23/17 16:00 09/23/17 16:00 09/23/17 16:00 09/23/17 16:00 09/23/17 16:00 Attending/Attestation - Attestation I have personally seen and examined this patient.: Yes I have fully participated in the care of the patient.: Yes I have reviewed all pertinent clinical information, including history, physical exam and plan: Yes Notes (Text): 09/24/17 06:42 Agree with note.
[2017-09-24] MEDS: Insulin Reg-LOW-Coverage SC SCH ×2 (07:59→12:00)
[2017-09-24 08:34] VITALS: BP 163/65; RESP 20; TEMP 97.6; O2SAT 98
--- NOTE | 2017-09-24 08:46 | RAD ---
PROCEDURE: Right Knee Radiographs. HISTORY: s/p fall COMPARISON: None. FINDINGS: BONES: No fracture. Generalized osteopenia. 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 OTHER FINDINGS: Medial femoral tibial compartment chondrocalcinosis. Atherosclerotic vascular calcifications present. . IMPRESSION: No fracture or lytic lesions. 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 .
--- NOTE | 2017-09-24 09:06 | CP.PCM.PN ---
Subjective - Date & Time of Evaluation Date of Evaluation: 09/24/17 Time of Evaluation: 07:00 - Subjective Subjective: Stable on 3R. No CP or SOB. Nocturnal agitation reported. Fall yesterday noted. V/S noted. PE: Lungs: clear Cor.: S1S2 Abd.: soft Ext.: no edema Neuro.: alert Labs 09/23 noted. trop - 0.51, K+= 3.4 ECG 09/21 noted: RSR, improved ST changes Echo done. Will read: Prelim. > Nl LV fx. Objective - Vital Signs/Intake and Output Vital Signs (last 24 hours): Temp Pulse Resp BP Pulse Ox 97.6 F 56 L 20 163/65 H 98 09/24/17 08:33 09/24/17 08:33 09/24/17 08:33 09/24/17 08:33 09/24/17 08:33 Intake and Output: 09/24/17 09/24/17 06:59 18:59 Intake Total 660 Balance 660 - Medications Medications: Current Medications Acetaminophen (Tylenol 325mg Tab) 650 mg PO Q6 PRN PRN Reason: Pain, Mild (1-3) Last Admin: 09/20/17 15:11 Dose: 650 mg Aspirin (Aspirin Chewable) 81 mg PO DAILY [facility] Last Admin: 09/23/17 09:22 Dose: 81 mg Atenolol (Tenormin) 50 mg PO DAILY [facility] Last Admin: 09/23/17 09:22 Dose: 50 mg Atorvastatin Calcium (Lipitor) 20 mg PO DIN [facility] Last Admin: 09/23/17 18:28 Dose: Not Given Clopidogrel Bisulfate (Plavix) 75 mg PO DAILY [facility] Last Admin: 09/23/17 09:22 Dose: 75 mg Enoxaparin Sodium (Lovenox) 40 mg SC DAILY [facility] PRN Reason: Protocol Last Admin: 09/23/17 09:22 Dose: 40 mg Famotidine (Pepcid) 20 mg PO DAILY [facility] Last Admin: 09/23/17 09:22 Dose: 20 mg Cefepime HCl (Maxipime 1gm) 1 gm in 100 mls @ 100 mls/hr IVPB DAILY [facility] PRN Reason: Protocol Stop: 09/25/17 14:01 Insulin Human NPH (Humulin N) 18 units SC [facility] Last Admin: 09/23/17 22:00 Dose: 18 units Insulin Human NPH (Humulin N) 10 units SC QAM [facility] Last Admin: 09/23/17 09:49 Dose: Not Given Insulin Human Regular (Humulin R Low) 0 units SC ACHS [facility] PRN Reason: Protocol Last Admin: 09/23/17 22:00 Dose: 1 units Lisinopril (Zestril) 10 mg PO DAILY [facility] Last Admin: 09/23/17 09:22 Dose: 10 mg Ondansetron HCl (Zofran Inj) 4 mg IVP Q6 PRN PRN Reason: Nausea/Vomiting - Labs Labs: 09/23/17 23:55 09/23/17 23:55 PT 12.9 SECONDS (9.4-12.5) H 09/21/17 06:30 INR 1.12 (0.93-1.08) H 09/21/17 06:30 APTT 24.9 Seconds (25.1-36.5) L 09/21/17 06:30 Assessment and Plan - Assessment and Plan (Free Text) Assessment: Dizziness/Diaphoresis/Not feeling well/Recent Fall with wrist fx. Hyperglycemia, initially + trop/R/O NSTEMI UTI Diabetes HBP HLD CKD H/O appendectomy Plan: OOB to chair as last Replace K+ AB Medical Tx. for CAD/Possible [employer] Att[employer].
[2017-09-24] MEDS: Enoxaparin 40 mg Syringe SC SCH (11:58)
[2017-09-24] MEDS: Insulin Human NPH 1 UNITS/0.01 ML SC SCH (12:00)
[2017-09-24] MEDS ORDERED: ceFAZolin 1 gm in NS 1 GM/100 ML BAG IVPB SCH (14:00)
--- NOTE | 2017-09-24 17:17 | CP.PCM.PN ---
Subjective - Date & Time of Evaluation Date of Evaluation: 09/24/17 Time of Evaluation: 10:45 - Subjective Subjective: Comfortable, no fevers, not in distress. Objective - Vital Signs/Intake and Output Vital Signs (last 24 hours): Temp Pulse Resp BP Pulse Ox 97.6 F 56 L 20 163/65 H 98 09/24/17 08:33 09/24/17 08:33 09/24/17 08:33 09/24/17 08:33 09/24/17 08:33 Intake and Output: 09/24/17 09/24/17 06:59 18:59 Intake Total 660 Balance 660 - Medications Medications: Current Medications Acetaminophen (Tylenol 325mg Tab) 650 mg PO Q6 PRN PRN Reason: Pain, Mild (1-3) Last Admin: 09/20/17 15:11 Dose: 650 mg Aspirin (Aspirin Chewable) 81 mg PO DAILY [facility] Last Admin: 09/23/17 09:22 Dose: 81 mg Atenolol (Tenormin) 50 mg PO DAILY [facility] Last Admin: 09/23/17 09:22 Dose: 50 mg Atorvastatin Calcium (Lipitor) 20 mg PO DIN [facility] Last Admin: 09/23/17 18:28 Dose: Not Given Clopidogrel Bisulfate (Plavix) 75 mg PO DAILY [facility] Last Admin: 09/23/17 09:22 Dose: 75 mg Enoxaparin Sodium (Lovenox) 40 mg SC DAILY [facility] PRN Reason: Protocol Last Admin: 09/23/17 09:22 Dose: 40 mg Famotidine (Pepcid) 20 mg PO DAILY [facility] Last Admin: 09/23/17 09:22 Dose: 20 mg Cefepime HCl (Maxipime 1gm) 1 gm in 100 mls @ 100 mls/hr IVPB DAILY [facility] PRN Reason: Protocol Stop: 09/25/17 14:01 Insulin Human NPH (Humulin N) 18 units SC HS [facility] Last Admin: 09/23/17 22:00 Dose: 18 units Insulin Human NPH (Humulin N) 10 units SC QAM [facility] Last Admin: 09/23/17 09:49 Dose: Not Given Insulin Human Regular (Humulin R Low) 0 units SC ACHS [facility] PRN Reason: Protocol Last Admin: 09/23/17 22:00 Dose: 1 units Lisinopril (Zestril) 10 mg PO DAILY [facility] Last Admin: 09/23/17 09:22 Dose: 10 mg Ondansetron HCl (Zofran Inj) 4 mg IVP Q6 PRN PRN Reason: Nausea/Vomiting - Labs Labs: 09/23/17 23:55 09/23/17 23:55 PT 12.9 SECONDS (9.4-12.5) H 09/21/17 06:30 INR 1.12 (0.93-1.08) H 09/21/17 06:30 APTT 24.9 Seconds (25.1-36.5) L 09/21/17 06:30 - Constitutional Appears: Chronically Ill - Head Exam Head Exam: NORMAL INSPECTION - Neck Exam Neck Exam: absent: Meningismus - Respiratory Exam Respiratory Exam: Decreased Breath Sounds - Cardiovascular Exam Cardiovascular Exam: +S1, +S2 - GI/Abdominal Exam GI & Abdominal Exam: Soft. absent: Tenderness Assessment and Plan - Assessment and Plan (Free Text) Plan: Assessment UTI with Klebsiella acute NSTEMI DM HTN dyslipidemia chronic renal failure history of gastritis CAD history of left wrist fracture Plan on Cefazolin and we can discontinue with outpatient follow up PMD
--- NOTE | 2017-09-25 03:35 | DS ---
HISTORY OF PRESENT ILLNESS: This is an 87-year-old female who came into the hospital and was found to have UTI secondary to Klebsiella. The patient was treated with antibiotics. The patient had improvement of her symptoms. The patient was seen overnight by the house physician and was found to have a fall. She was evaluated and was being monitored by system. The patient has no complaints of any headaches, no dizziness, no nausea. The plan is to try to get her to a subacute rehab facility. PHYSICAL EXAMINATION: VITAL SIGNS: Temperature is 97.2, pulse of 56, blood pressure is 143/63, respirations 18, and O2 saturation is 96%. GENERAL: The patient is lying in bed, flat, comfortable. HEENT: No oral lesion. Anicteric sclerae. Moist mucosa. NECK: No JVD, adenopathy, or thyromegaly. CARDIOVASCULAR: S1 and S2, regular. No murmurs, rubs, or gallops. LUNGS: Clear to auscultation bilaterally. No wheeze, rales, or rhonchi. ABDOMEN: Bowel sounds are positive, soft, nontender and nondistended. EXTREMITIES: No cyanosis, clubbing or edema. ASSESSMENT: 1. Displaced fracture of the left radius and ulna with cast in place. 2. Delirium. 3. Diabetes type 2. 4. Fall. 5. Urinary tract infection secondary to Klebsiella. 6. Dyslipidemia. 7. Elevated troponin. PLAN: The patient is currently comfortable. We are going to continue with aspirin. The patient was seen by Dr. Townsend. No further intervention is going to be done. The patient is on Humulin for diabetes. She is receiving Lipitor for dyslipidemia. The patient is on Lovenox for DVT prophylaxis. She is receiving Plavix. The patient is going to continue on Zestril. She is on carbohydrate consistent diet. Dileep Yang MD
--- NOTE | 2017-09-25 06:19 | CARD ---
APPROVED REPORT EXAM: Two-dimensional and M-mode echocardiogram with Doppler and color Doppler. Other Information Quality : AverageRhythm : INDICATION R/O MA, + trop. 2D DIMENSIONS Left Atrium (2D)3.7 (1.6-4.0cm)IVSd1.1 (0.7-1.1cm) LVDd3.6 (3.9-5.9cm)PWd0.9 (0.7-1.1cm) LVDs2.5 (2.5-4.0cm)FS (%) 31.4 % LVEF (%)60.0 (>50%) M-Mode DIMENSIONS Aortic Root3.40 (2.2-3.7cm)Aortic Cusp Exc.1.20 (1.5-2.0cm) Aortic Valve AoV Peak Xxunqbzc877.0cm/sAoV VTI43.5cmAO Peak GR.13mmHg LVOT Peak Kmbjsfeg312.0cm/sLVOT VTI28.60cmAO Mean GR.8mmHg AI P 1/2 [id number] Mitral Valve MV E Fccpxkmc001.0cm/sMV A Ajxshbww915.0cm/sMV [id number] E/A ratio0.7MVA (PHT)1.95cm2 TDI Lateral E' Peak V5.36cm/sMedial E' Peak V4.58cm/sE/Lateral E'22.9 E/Medial E'26.9 Pulmonary Valve PV Peak Jiysgvof804.0cm/sPV Peak Grad.4mmHg Tricuspid Valve TR Peak Lrudpgtw817sl/sRAP [id number] Peak Gr.12mmHg [id number] LEFT VENTRICLE The left ventricle is normal size. There is mild concentric left ventricular hypertrophy. The left ventricular function is normal. The left ventricular ejection fraction is within the normal range. There is normal LV segmental wall motion. RIGHT VENTRICLE The right ventricle is normal size. ATRIA The left atrium size is normal. The right atrium size is normal. The interatrial septum is intact with no evidence for an atrial septal defect. AORTIC VALVE The aortic valve is moderately calcified. There is mild aortic regurgitation. MITRAL VALVE The mitral valve is mildly thickened but opens well. Mitral annular calcification is severe. Mitral regurgitation is mild. TRICUSPID VALVE The tricuspid valve is normal in structure. There is trace tricuspid regurgitation. PULMONIC VALVE The pulmonic valve is not well visualized. GREAT VESSELS The aortic root is normal in size. PERICARDIAL EFFUSION There is no pericardial effusion. <Conclusion> The left ventricle is normal size. There is mild concentric left ventricular hypertrophy. The left ventricular function is normal. The aortic valve is moderately calcified. Aortic sclerosis. There is mild aortic regurgitation. Mitral regurgitation is mild. There is trace tricuspid regurgitation.
== END 2017-09-24 12:57 | disposition home or self-care (01) | DRG 638 ==
LOC: ED 10:15 → ERH 11:23 → 3RSO 13:16 → 3RNO 09-23 11:46
PROVIDERS: ADMIT Internal Medicine Nephrology; ATTEND Internal Medicine Nephrology
DX: E11.65 Type 2 diabetes mellitus with hyperglycemia (principal); F05 Delirium due to known physiological condition; E11.22 Type 2 diabetes mellitus with diabetic chronic kidney disease; N39.0 Urinary tract infection, site not specified; D64.9 Anemia, unspecified; B96.1 Klebsiella pneumoniae [K. pneumoniae] as the cause of diseases classified elsewhere; E78.5 Hyperlipidemia, unspecified; F03.90 Unspecified dementia, unspecified severity, without behavioral disturbance, psychotic disturbance, mood disturbance, and anxiety; H91.90 Unspecified hearing loss, unspecified ear; I12.9 Hypertensive chronic kidney disease with stage 1 through stage 4 chronic kidney disease, or unspecified chronic kidney disease; I25.10 Atherosclerotic heart disease of native coronary artery without angina pectoris; K29.70 Gastritis, unspecified, without bleeding; N18.9 Chronic kidney disease, unspecified; N32.81 Overactive bladder; Z79.02 Long term (current) use of antithrombotics/antiplatelets; M80.032D Age-related osteoporosis with current pathological fracture, left forearm, subsequent encounter for fracture with routine healing; Z80.8 Family history of malignant neoplasm of other organs or systems; Z83.3 Family history of diabetes mellitus; Z87.01 Personal history of pneumonia (recurrent); Z90.49 Acquired absence of other specified parts of digestive tract; R00.1 Bradycardia, unspecified; Z90.710 Acquired absence of both cervix and uterus; Z98.84 Bariatric surgery status; Z98.42 Cataract extraction status, left eye; Z98.41 Cataract extraction status, right eye; R40.2412 Glasgow coma scale score 13-15, at arrival to emergency department; Z79.82 Long term (current) use of aspirin; Z91.81 History of falling